=== PATIENT | female | born 1970 | race Caucasian/White ===

== ENCOUNTER → 2016-12-15 | Outpatient (CLI) | payer OTHER ==
[~2016-12-15] MED LIST: ALPR.5T PO; AMLO5TAB2 PO; CIPR500T78 PO; CLIN300C3 PO; CLON0.5T3 PO; HYDR-3714 PO; HYDR25CA PO; LISI-552 PO; LOPRESSOR; LORA-877 PO; METO25TA PO; METO50TA2 PO; OMEP20CA12 PO; ONDA4TAB8 PO; ONDA4TAB8 SL
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
== END ==
LOC: RAD 15:29
PROVIDERS: ATTEND Nurse Practitioner Family
DX: Z12.31 Encounter for screening mammogram for malignant neoplasm of breast (principal)

== ENCOUNTER → 2016-12-31 | Outpatient (CLI) | payer OTHER ==
--- OUTSIDE RECORDS SUMMARY | 2016-12-31 12:29 | XMS REPORT | Continuity of Care Document ---
Author Author [facility] Organization [facility] Address Unknown Phone Unavailable Care Team Providers Care Tie Sawyer Name Role Phone NO, LOCAL PHYSICIAN PCP Unavailable Insurance Providers Payer Name Policy Number Subscriber Name Relationship Esthela Kancare Amerigrp [id number] Shay Krishna 18 Self / Same As Patient Advance Directives Directive Response Recorded Date/Time Advance Directives No 11/29/14 11:17am Health Care Power of Professor Of Engineering No 11/21/14 9:55pm Organ Donor No 11/21/14 [...] HCl Allergy Intermediate HIVES Active 10/02/12 Penicillins ([id number]) Allergy Intermediate HIVES Active 10/02/12 Aspirin Allergy Severe MAKES HER DEATHLY ILL Active 10/02/12 naproxen ([id number]) Allergy Intermediate HIVES Active 10/02/12 Cefprozil Allergy Intermediate HIVES Active 10/02/12 Immunizations Name Given Type Date of Influenza Vaccine 07/26/14 Historical Vital Signs Acute Vital Signs Vital Response Date/Time Temperature (Fahrenheit) 98.2 degrees F (97.6 - 99.5) Temperature (Calculated Celsius) 36.52831 degrees C (36.4 - 37.5) Temperature Source Temporal Pulse Rate (adult) 69 bpm (60 - 90) Respiratory Rate 16 bpm (12 - 24) O2 Sat by Pulse Oximetry 98 % (88 - 100) Blood Pressure 137/106 mm Hg Pain Pain Intensity 0 Height (Feet) 5 feet Height (Inches) 5 inches Height (Calculated Centimeters) 165.179797 cm Weight (Pounds) 190 pounds Weight (Calculated Grams) 23692.551 gm Weight (Calculated Kilograms) 86.257585 kilograms Calculated BMI 31.61 Results Laboratory Results [...] 5-9 11/21/2014 10:50pm 11/21/2014 11:06pm Urine Specific [place] 1.005 * 1.016-1.022 11/21/2014 10:50pm 2014 11:06pm [...] Encounter Location Date/Time Departed Emergency Room Via [facility] 11/29/14 11:02am Departed Emergency Room Via [facility] 11/21/14 10:07pm Recent Diagnosis
--- NOTE | 2016-12-31 19:12 | Diagnostic Imaging Report ---
Bilateral diagnostic mammogram. INDICATION: Bilateral palpable lumps. Comparison exam from 09/05/15 reviewed. The current study was also evaluated with a Computer Aided Detection (CAD) system. FINDINGS: The breasts are composed of heterogeneously dense parenchyma which may decrease mammographic sensitivity. There is no definite mass, architectural distortion or suspicious cluster of calcification. Some nodularity to the breast parenchyma is seen similar to prior exams. IMPRESSION: Dense breasts which may decrease mammographic sensitivity. Ultrasound evaluation pending. ACR BI-RADS Category 0: Incomplete. (Needs additional imaging evaluation). Result letter will be mailed to the patient. Note: At least 10% of breast cancer is not imaged by mammography. Dictated by: Dictated on workstation # [id number]
--- NOTE | 2016-12-31 19:20 | Diagnostic Imaging Report ---
EXAMINATION: Ultrasound of bilateral breasts. INDICATION: Bilateral breast lumps and breast pain. FINDINGS: The four quadrants and retroareolar region of each breast was scanned. Particularly at the 3:00 zone in the left breast a palpable area is present with no underlying lesion seen. There are multiple scattered areas of simple appearing duct ectasia and simple cysts seen, the largest in the left side is at the 12:00 zone, measuring 1.4 x 0.8 x 0.9 cm. No solid mass in either breast is seen. IMPRESSION: No suspicious lesion identified. The palpable area at the 3:00 zone demonstrate no underlying lesion. Clinical followup is recommended. ACR BI-RADS Category 2: Benign findings. Result letter will be mailed to the patient. Note: At least 10% of breast cancer is not imaged by mammography. Dictated by: Dictated on workstation # [id number]
== END ==
LOC: RAD 12:26
PROVIDERS: ATTEND Nurse Practitioner Family
DX: N64.4 Mastodynia (principal); N63 Unspecified lump in breast
CPT/HCPCS: 77066

== ENCOUNTER 2017-01-18 13:10 | Emergency (ER) | payer OTHER ==
[~2017-01-18] VITALS: Ht 165.1 cm; Wt 88.5 kg
--- OUTSIDE RECORDS SUMMARY | 2017-01-18 13:15 | XMS REPORT | Continuity of Care Document ---
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 Name Role Phone NO, LOCAL PHYSICIAN PCP Unavailable Insurance Providers Payer Name Policy Number Subscriber Name Relationship Esthela Kancare Amerigrp [id number] Shay Krishna 18 Self / Same As Patient Advance Directives Directive Response Recorded Date/Time Advance Directives No 11/29/14 11:17am Health Care Power of Sinter Press Operator No 11/21/14 9:55pm Organ Donor No 11/21/14 [...] HCl Allergy Intermediate HIVES Active 10/02/12 Penicillins ([id number]) Allergy Intermediate HIVES Active 10/02/12 Aspirin Allergy Severe MAKES HER DEATHLY ILL Active 10/02/12 naproxen ([id number]) Allergy Intermediate HIVES Active 10/02/12 Cefprozil Allergy Intermediate HIVES Active 10/02/12 Immunizations Name Given Type Date of Influenza Vaccine 07/26/14 Historical Vital Signs Acute Vital Signs Vital Response Date/Time Temperature (Fahrenheit) 98.2 degrees F (97.6 - 99.5) Temperature (Calculated Celsius) 36.14481 degrees C (36.4 - 37.5) Temperature Source Temporal Pulse Rate (adult) 69 bpm (60 - 90) Respiratory Rate 16 bpm (12 - 24) O2 Sat by Pulse Oximetry 98 % (88 - 100) Blood Pressure 137/106 mm Hg Pain Pain Intensity 0 Height (Feet) 5 feet Height (Inches) 5 inches Height (Calculated Centimeters) 165.286361 cm Weight (Pounds) 190 pounds Weight (Calculated Grams) 64697.551 gm Weight (Calculated Kilograms) 86.637059 kilograms Calculated BMI 31.61 Results Laboratory Results [...] 5-9 11/21/2014 10:50pm 11/21/2014 11:06pm Urine Specific [place] 1.005 * 1.016-1.022 11/21/2014 10:50pm 2014 11:06pm [...] Encounter Location Date/Time Departed Emergency Room Via [facility] 11/29/14 11:02am Departed Emergency Room Via [facility] 11/21/14 10:07pm Recent Diagnosis
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
[2017-01-18] MEDS ORDERED: SILVER SULFADIAZINE 50 GM CREAM ONE (13:56)
[2017-01-18 14:03] VITALS: BP 161/100
[2017-01-19] MEDS ORDERED: SILVER SULFADIAZINE 50 GM CREAM TOP SCH (09:00)
== END 2017-01-18 14:03 | disposition home or self-care (01) ==
LOC: EDUNIT# 13:10 → ER 13:11
DX: T23.162A Burn of first degree of back of left hand, initial encounter (principal); X10.0XXA Contact with hot drinks, initial encounter; Y92.59 Other trade areas as the place of occurrence of the external cause; Y99.0 Civilian activity done for income or pay
CPT/HCPCS: 99283

== ENCOUNTER 2018-11-10 06:38 | Emergency (ER) | payer BC, OTHER ==
[~2018-11-10] VITALS: Ht 165.1 cm; Wt 90.7 kg
[~2018-11-10 06:38] MED LIST changes: +METO50TA15 PO; -METO50TA2 PO
[2018-11-10 06:59] LABS: BASOPHILS % (AUTO) 0 % (0-10); EOSINOPHILS # (AUTO) 0.3 10^3/uL (0.0-0.3); EOSINOPHILS % (AUTO) 3 % (0-10); HEMATOCRIT 39 % (35-52); LYMPHOCYTES # (AUTO) 3.7 X 10^3 (1.0-4.0); LYMPHOCYTES % (AUTO) 32 % (12-44); MEAN CORPUSCULAR HEMOGLOBIN 30 PG (25-34); MEAN CORPUSCULAR HGB CONC 34 G/DL (32-36); MEAN CORPUSCULAR VOLUME 90 FL (80-99); MEAN PLATELET VOLUME 10.5 FL (7.4-10.4); MONOCYTES # (AUTO) 0.9 X 10^3 (0.0-1.0); MONOCYTES % (AUTO) 8 % (0-12); NEUTROPHILS # (AUTO) 6.6 X 10^3 (1.8-7.8); NEUTROPHILS % (AUTO) 57 % (42-75); PLATELET COUNT 291 10^3/uL (130-400); RED BLOOD COUNT 4.29 10^6/uL (4.35-5.85); RED CELL DISTRIBUTION WIDTH 13.5 % (10.0-14.5); WHITE BLOOD COUNT 11.5 10^3/uL (4.3-11.0)
[2018-11-10] MEDS ORDERED: FAMOTIDINE 20MG/2ML IV (PEPCID) IVP ONE (07:00)
[2018-11-10] MEDS ORDERED: diphenhydrAMINE 50 MG/ML INJ (BENADRYL) IVP ONE (07:00)
[2018-11-10 07:15] LABS: ALANINE AMINOTRANSFERASE 12 U/L (0-55); ALBUMIN 3.9 GM/DL (3.2-4.5); ALKALINE PHOSPHATASE 71 U/L (40-136); BILIRUBIN,TOTAL 0.3 MG/DL (0.1-1.0); BUN/CREATININE RATIO 21; CARBON DIOXIDE 16 MMOL/L (21-32); CHLORIDE 108 MMOL/L (98-107); CREATININE SERUM 0.85 MG/DL (0.60-1.30); GFR ESTIMATED > 60; GLUCOSE 140 MG/DL (70-105); POTASSIUM 4.7 MMOL/L (3.6-5.0); SODIUM 135 MMOL/L (135-145); TOTAL PROTEIN 7.2 GM/DL (6.4-8.2)
[2018-11-10] MEDS ORDERED: ONDANSETRON 4 MG/2 ML (SDV) Z0FRAN ONE (07:26)
[2018-11-10 07:37] LABS: TSH (THYROID ANALYZER) 1.32 UIU/ML (0.35-4.94)
[2018-11-10] MEDS ORDERED: PROP40TA5 PO (08:11)
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
[2018-11-10 08:30] VITALS: BP 154/79
== END 2018-11-10 08:30 | disposition home or self-care (01) ==
LOC: EDUNIT# 06:38 → ER 06:41
DX: L29.9 Pruritus, unspecified (principal); F41.9 Anxiety disorder, unspecified; I10 Essential (primary) hypertension; F12.10 Cannabis abuse, uncomplicated; F17.210 Nicotine dependence, cigarettes, uncomplicated; G43.909 Migraine, unspecified, not intractable, without status migrainosus; E21.5 Disorder of parathyroid gland, unspecified; F43.10 Post-traumatic stress disorder, unspecified; Z98.51 Tubal ligation status; Z90.89 Acquired absence of other organs; Z88.6 Allergy status to analgesic agent; Z88.0 Allergy status to penicillin; Z88.1 Allergy status to other antibiotic agents
CPT/HCPCS: 36415; 80053; 84443; 85025; 96374; 96375

== ENCOUNTER 2018-12-04 18:27 | Emergency (ER) | payer OTHER | END 2018-12-04 20:53 | disposition home or self-care (01) | LOC: ER 18:27 ==

== ENCOUNTER 2018-12-05 21:49 | Emergency (ER) | payer OTHER | END 2018-12-05 23:09 | disposition home or self-care (01) | LOC: ER 21:49 ==

== ENCOUNTER → 2019-02-21 | Outpatient (CLI) | payer OTHER ==
[~2019-02-21] MED LIST changes: +PROP40TA5 PO
--- NOTE | 2019-02-21 11:21 | Diagnostic Imaging Report ---
PROCEDURE: US abdomen complete. TECHNIQUE: Multiple real-time grayscale images were obtained over the abdomen in various projections. INDICATION: Abdominal pain. FINDINGS: The previous hepatic ultrasound exam of 10/11/2012 noted that the gallbladder was surgically absent. There is no acute abnormality identified otherwise. On this study, the common bile duct is not abnormally dilated measuring 2.7 mm. There is no mass or free fluid in the gallbladder fossa. The liver is not enlarged, and there is no focal mass involving the liver. The biliary tree is not abnormally distended. The pancreas was obscured by bowel gas. The proximal aorta and inferior vena cava, the kidneys, and the spleen are generally unremarkable. There is no mass or free fluid collection evident. IMPRESSION: 1. There is no acute abnormality of the abdomen. 2. The gallbladder is surgically absent. 3. If clinical concern regarding an underlying abnormality persists, then CT would be recommended for further study. Dictated by: Dictated on workstation # [id number]
--- NOTE | 2019-02-21 11:31 | Diagnostic Imaging Report ---
EXAMINATION: Pelvic ultrasound. INDICATION: Pelvic pain. COMPARISON: There are no prior studies available for comparison. FINDINGS: The uterus is not enlarged measuring 10.3 x 5.9 x 5.1 cm. There is no focal mass involving the uterus to suggest a fibroid. The endometrial lining is thickened measuring 13 mm (normal 5 mm or less). This finding is nonspecific. Correlation with the patient's menstrual cycle would be recommended. Both ovaries were identified. There is good blood flow to each ovary and there is no sign of torsion. There are subcentimeter follicles associated with each ovary. There is no solid pelvic mass or free fluid collection evident. Incidental note is made of a 1 cm nabothian cyst. IMPRESSION: There is no evidence for an acute pelvic abnormality. Dictated by: Dictated on workstation # [id number]
== END ==
LOC: RAD 08:15
PROVIDERS: ATTEND Family Medicine
DX: R10.2 Pelvic and perineal pain (principal); R10.10 Upper abdominal pain, unspecified; M25.551 Pain in right hip; Z90.49 Acquired absence of other specified parts of digestive tract
CPT/HCPCS: 76700; 76830; 76856

== ENCOUNTER 2019-03-18 07:23 | Emergency (ER) | payer OTHER ==
[~2019-03-18] VITALS: Ht 170.2 cm; Wt 90.7 kg
[2019-03-18] MEDS ORDERED: ONDANSETRON 4 MG/2 ML (SDV) Z0FRAN ONE (07:36)
[2019-03-18] MEDS ORDERED: LORazepam INJ 2 MG/ML (ATIVAN) VIAL ONE (07:36)
[2019-03-18] MEDS ORDERED: ONDANSETRON 4 MG/2 ML (SDV) Z0FRAN IVP ONE (07:45)
[2019-03-18] MEDS ORDERED: LORazepam INJ 2 MG/ML (ATIVAN) VIAL IVP ONE (07:45)
[2019-03-18 07:46] LABS: BASOPHILS # (AUTO) 0.1 10^3/uL (0.0-0.1); BASOPHILS % (AUTO) 0 % (0-10); EOSINOPHILS # (AUTO) 0.3 10^3/uL (0.0-0.3); EOSINOPHILS % (AUTO) 3 % (0-10); HEMATOCRIT 42 % (35-52); HEMOGLOBIN 14.3 G/DL (11.5-16.0); LYMPHOCYTES # (AUTO) 4.1 X 10^3 (1.0-4.0); LYMPHOCYTES % (AUTO) 35 % (12-44); MEAN CORPUSCULAR HEMOGLOBIN 30 PG (25-34); MEAN CORPUSCULAR HGB CONC 34 G/DL (32-36); MEAN CORPUSCULAR VOLUME 89 FL (80-99); MONOCYTES # (AUTO) 0.9 X 10^3 (0.0-1.0); MONOCYTES % (AUTO) 7 % (0-12); NEUTROPHILS # (AUTO) 6.4 X 10^3 (1.8-7.8); NEUTROPHILS % (AUTO) 55 % (42-75); PLATELET COUNT 345 10^3/uL (130-400); RED CELL DISTRIBUTION WIDTH 13.2 % (10.0-14.5); WHITE BLOOD COUNT 11.7 10^3/uL (4.3-11.0)
--- NOTE | 2019-03-18 07:56 | ED Chest Pain ---
General Chief Complaint: Chest Pain Stated Complaint: CHEST PAIN;HIGH BP Nursing Triage Note: ARRIVED VIA AMB TO ROOM 05. ANXIOUS, CRYING, TALKING ABOUT THE RECENT OF HER PARENTS. COMPLAINS OF CHEST PAIN STARTING LAST NIGHT. WAS AT WORK TODAY AND IT BECAME WORSE. Nursing Sepsis Screen: No Definite Risk Source: patient, old records Exam Limitations: no limitations History of Present Illness Date Seen by Provider: March 18, 2019 Time Seen by Provider: 07:20 Initial Comments This 48-year-old woman presents to the emergency room with left upper chest pain that started last night and intensified this morning. She does not identify any exacerbating or alleviating factors. She is extremely anxious and is perseverating about the recent deaths of her mother and father. She says "I don't want to " multiple times. She is sobbing throughout the initial interview. She states "I think I'm going to pass out". She seems to be hyperventilating. She is rather hypertensive. She denies any history of cardiovascular problems and has had no prior cardiovascular workup. She smokes but denies drug or alcohol use. Aspirin was not administered as patient has anaphylaxis to aspirin. Patient reports frequent vomiting. Allergies and Home Medications Allergies Coded Allergies: aspirin (Verified Allergy, Severe, MAKES HER DEATHLY ILL, 10/02/12) Cefprozil (Verified Allergy, Intermediate, HIVES, 10/02/12) Penicillins (Verified Allergy, Intermediate, HIVES, 10/02/12) bupropion HCl (Verified Allergy, Intermediate, HIVES, 10/02/12) naproxen (Verified Allergy, Intermediate, HIVES, 10/02/12) Home Medications Lisinopril 20 Mg Tablet, 20 MG PO HS, (Reported) Lorazepam 0.5 Mg Tablet, 0.5 MG PO BID PRN for ANXIETY Prescribed by: MARIANNE OH on 03/18/19907 Metoprolol Tartrate 50 Mg Tablet, 100 MG PO DAILY, (Reported) Omeprazole 20 Mg Tablet.dr, 20 MG PO DAILY Prescribed by: MARIANNE OH on 03/18/19907 Ondansetron 4 Mg Tab.rapdis, 4 MG PO Q4H PRN for NAUSEA/VOMITING-1ST LINE Prescribed by: MARIANNE OH on 03/18/19907 Propranolol HCl 40 Mg Tablet, 40 MG PO BID Prescribed by: MARIANNE OH on 11/10/18 0811 Patient Home Medication List Home Medication List Reviewed: Yes Review of Systems Review of Systems Constitutional: no symptoms reported EENTM: No Symptoms Reported Respiratory: No Symptoms Reported Cardiovascular: See HPI Gastrointestinal: See HPI Genitourinary: No Symptoms Reported Musculoskeletal: no symptoms reported Skin: no symptoms reported Psychiatric/Neurological: No Symptoms Reported Endocrine: No Symptoms Reported Hematologic/Lymphatic: No Symptoms Reported Past Khabgms-Dlablc-Qtpqhv Hx Patient Social History Alcohol Use: Denies Use Recreational Drug Use: No Drug of Choice: Marijuana Smoking Status: Never a Smoker Type Used: Cigarettes 2nd Hand Smoke Exposure: Yes Recent Foreign Travel: No Contact w/Someone Who Travel: No Recent Infectious Disease Expo: No Recent Hopitalizations: No Immunizations Up To Date Date of Influenza Vaccine: Jul 26, 2014 Seasonal Allergies Seasonal Allergies: No Past Medical History Surgeries: Yes (parathyroid removed/biopsy) Adenoidectomy, Gallbladder, Tonsillectomy, Tubal Ligation Respiratory: No Cardiac: Yes Hypertension Neurological: Yes (headaches- due to head injury in november 2014) Headaches /Migraines, Traumatic Brain Injury 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 oz. 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 Norm as Tested, Other (very anxious and tearful) Skin: Normal Color, Warm/Dry Procedures/Interventions Psych Intervention: Screening/Mental Health Progress/Results/Core Measures Results/Orders Lab Results Laboratory Tests Test 03/18/19 07:28 03/18/19 08:05 03/18/19 09:30 Range/Units White Blood Count 11.7 H 4.3-11.0 10^3/uL Red Blood Count 4.79 4.35-5.85 10^6/uL Hemoglobin 14.3 11.5-16.0 G/DL Hematocrit 42 35-52 % Mean Corpuscular Volume 89 80-99 FL Mean Corpuscular Hemoglobin 30 25-34 PG Mean Corpuscular Hemoglobin Concent 34 32-36 G/DL Red Cell Distribution Width 13.2 10.0-14.5 % Platelet Count 345 130-400 10^3/uL Mean Platelet Volume 10.0 7.4-10.4 FL Neutrophils (%) (Auto) 55 42-75 % Lymphocytes (%) (Auto) 35 12-44 % Monocytes (%) (Auto) 7 0-12 % Eosinophils (%) (Auto) 3 0-10 % Basophils (%) (Auto) 0 0-10 % Neutrophils # (Auto) 6.4 1.8-7.8 X 10^3 Lymphocytes # (Auto) 4.1 H 1.0-4.0 X 10^3 Monocytes # (Auto) 0.9 0.0-1.0 X 10^3 Eosinophils # (Auto) 0.3 0.0-0.3 10^3/uL Basophils # (Auto) 0.1 0.0-0.1 10^3/uL Prothrombin Time 14.0 12.2-14.7 SEC INR Comment 1.0 0.8-1.4 Activated Partial Thromboplast Time 40 H 24-35 SEC Sodium Level 137 135-145 MMOL/L Potassium Level 3.9 3.6-5.0 MMOL/L Chloride Level 104 98-107 MMOL/L Carbon Dioxide Level 21 21-32 MMOL/L Anion Gap 12 5-14 MMOL/L Blood Urea Nitrogen 14 7-18 MG/DL Creatinine 1.00 0.60-1.30 MG/DL Estimat Glomerular Filtration Rate 59 BUN/Creatinine Ratio 14 Glucose Level 138 H 70-105 MG/DL Calcium Level 9.5 8.5-10.1 MG/DL Corrected Calcium 9.3 8.5-10.1 MG/DL Magnesium Level 1.9 1.8-2.4 MG/DL Total Bilirubin 0.4 0.1-1.0 MG/DL Aspartate Amino Transf (AST/SGOT) 12 5-34 U/L Alanine Aminotransferase (ALT/SGPT) 13 0-55 U/L Alkaline Phosphatase 93 40-136 U/L Myoglobin 46.0 10.0-92.0 NG/ML Troponin I < 0.028 < 0.028 <0.028 NG/ML Total Protein 7.9 6.4-8.2 GM/DL Albumin 4.3 3.2-4.5 GM/DL Serum Alcohol < 10 <10 MG/DL Urine Opiates Screen NEGATIVE NEGATIVE Urine Oxycodone Screen NEGATIVE NEGATIVE Urine Methadone Screen NEGATIVE NEGATIVE Urine Propoxyphene Screen NEGATIVE NEGATIVE Urine Barbiturates Screen NEGATIVE NEGATIVE Ur Tricyclic Antidepressants Screen NEGATIVE NEGATIVE Urine Phencyclidine Screen NEGATIVE NEGATIVE Urine Amphetamines Screen NEGATIVE NEGATIVE Urine Methamphetamines Screen NEGATIVE NEGATIVE Urine Benzodiazepines Screen NEGATIVE NEGATIVE Urine Cocaine Screen NEGATIVE NEGATIVE Urine Cannabinoids Screen NEGATIVE NEGATIVE My Orders Orders - MARIANNE MANJARREZ MD Ondansetron Injection (Zofran Injectio (03/18/19 07:36) Lorazepam Injection (Ativan Injection) (03/18/19 07:36) Alcohol (03/18/19 07:40) Drug Screen Stat (Urine) (03/18/19 07:40) Lorazepam Injection (Ativan Injection) (03/18/19 07:45) Cbc With Automated Diff (03/18/19 07:40) Magnesium (03/18/19 07:40) Chest 1 View, Ap/Pa Only (03/18/19 07:40) Ekg Tracing (03/18/19 07:40) Cardiac Profile 1 (03/18/19 07:40) Comprehensive Metabolic Panel (03/18/19 07:40) Myoglobin Serum (03/18/19 07:40) Protime With Inr (03/18/19 07:40) Partial Thromboplastin Time (03/18/19 07:40) O2 (03/18/19 07:40) Monitor-Rhythm Ecg Trace Only (03/18/19 07:40) Ed Iv/Invasive Line Start (03/18/19 07:40) Ondansetron Injection (Zofran Injectio (03/18/19 07:45) Ekg Tracing (03/18/19 09:02) Troponin I (03/18/19 09:30) Medications Given in ED Current Medications Medications Dose Ordered Sig/Juan David Route Start Time Stop Time Status Last Admin Dose Admin Lorazepam 0.5 mg ONCE ONCE IVP 03/18/19 07:45 03/18/19 07:46 DC 03/18/19 07:42 0.5 MG Ondansetron HCl 8 mg ONCE ONCE IVP 03/18/19 07:45 03/18/19 07:46 DC 03/18/19 07:42 8 MG Vital Signs/I&O 03/18/19 07:23 Temp 97.2 Pulse 100 Resp 18 B/P (MAP) 175/127 (143) Pulse Ox 96 O2 Delivery Room Air Blood Pressure Mean: 143 Progress Progress Note #1: Time: 07:57 Progress Note EKG was normal. Aspirin was not given due to allergy. Patient has received Ativan 0.5 mg IV and Zofran 8 mg IV. Chest pain workup is in progress. Progress Note #2: Time: 08:03 Progress Note Patient states her pain is reduced from 8/10 down to 4/10 after Ativan and Zofran. She is still little bit tearful. Blood pressure has improved to 130/ 97. She states "I feel like my heart is broken". Progress Note #3: Time: 09:03 Progress Note Patient reports being free of pain and nausea at this time. Patient is going through a lot of grief and stress related to her parents deaths. She also tells me that she has been bulimic since age 12. Vomiting is a frequent occurrence for her, sometimes spontaneously and sometimes induced. Progress Note #4: Time: 10:18 Progress Note Repeat EKG and troponin were unremarkable. Initial ECG Impression Date: March 18, 2019 Initial ECG Impression Time: 07:22 Initial ECG Rate: 97 Initial ECG Rhythm: Normal Sinus Initial ECG Intervals: Normal Initial ECG Impression: Normal Comment Normal sinus rhythm with no ST elevation or depression. No abnormal intervals or axis deviation. EKG : EKG Time: : Rate: 54 Rhythm: Normal Sinus Intervals: Normal ECG Impression: Normal Comment Normal sinus rhythm with no ST elevation or depression. LVH by voltage on automated read. No abnormal intervals. Diagnostic Imaging Diagonstic Imaging: Xray Plain Films/CT/US/NM/MRI: chest Comments Chest x-ray viewed by me and report reviewed. See report below: NAME: [facility] REC#: [id number] PT STATUS: REG ER : 1970 PHYSICIAN: MARIANNE MANJARREZ MD ADMIT DATE: 03/18/19/ER Draft Date of Exam:03/18/19 CHEST 1 VIEW, AP/PA ONLY INDICATION: Hypertension, chest pain COMPARISON: 06/07/2016 FINDINGS: The lungs are clear. The heart and vessels normal. There is no effusion or pneumothorax. IMPRESSION: No acute appearing abnormality. Dictated on workstation # [id number] Dict: 03/18/19 0815 Trans: 03/18/19 0833 [facility] [id number] Interpreted by: SE HUTCHISON Departure Impression Primary Impression: Chest pain Qualified Codes: R07.9 - Chest pain, unspecified Additional Impressions: Anxiety Grief reaction Nausea and vomiting Qualified Codes: R11.2 - Nausea with vomiting, unspecified Self induced vomiting Disposition: 01 HOME, SELF-CARE Condition: Improved Departure-Patient Inst. Referrals: NO,LOCAL PHYSICIAN (PCP/Family) Primary Care Physician Patient Instructions: Anxiety, Adult (DC), Chest Pain Add. Discharge Instructions: Follow-up with your primary care provider soon as possible. Discussed referrals to counseling and cardiology at your follow-up appointment. Return to the emergency room if you have worsening symptoms. Use your Ativan as prescribed for emergency episodes of anxiety. Use Zofran (ondansetron) as prescribed for nausea and vomiting. Use the antacid medication (omeprazole) as prescribed for the next 30 days to reduce irritation on your stomach and esophagus. All discharge instructions reviewed with patient and/or family. Voiced understanding. Scripts Lorazepam (Ativan) 0.5 Mg Tablet 0.5 MG PO BID PRN for ANXIETY, #10 TAB Prov: MARIANNE MANJARREZ MD 03/18/19 Ondansetron (Ondansetron Odt) 4 Mg Tab.rapdis 4 MG PO Q4H PRN for NAUSEA/VOMITING-1ST LINE, #10 TAB Prov: MARIANNE MANJARREZ MD 03/18/19 Omeprazole (Omeprazole) 20 Mg Tablet.dr 20 MG PO DAILY, #30 TAB Prov: MARIANNE MANJARREZ MD 03/18/19 Work/School Note: Work Release Form Date Seen in the Emergency Department: March 18, 2019 Return to Work: March 20, 2019 Restrictions: No Restrictions Copy Copies To 1: KALIE LOPEZ MD, JOSHUA T MD March 18, 2019 07:56
[2019-03-18 07:58] LABS: ALANINE AMINOTRANSFERASE 13 U/L (0-55); ALBUMIN 4.3 GM/DL (3.2-4.5); ALKALINE PHOSPHATASE 93 U/L (40-136); BILIRUBIN,TOTAL 0.4 MG/DL (0.1-1.0); BUN/CREATININE RATIO 14; CALCIUM 9.5 MG/DL (8.5-10.1); CARBON DIOXIDE 21 MMOL/L (21-32); CHLORIDE 104 MMOL/L (98-107); GFR ESTIMATED 59; GLUCOSE 138 MG/DL (70-105); MAGNESIUM 1.9 MG/DL (1.8-2.4); POTASSIUM 3.9 MMOL/L (3.6-5.0); SODIUM 137 MMOL/L (135-145); TOTAL PROTEIN 7.9 GM/DL (6.4-8.2)
--- NOTE | 2019-03-18 08:00 | NUR ---
IN ROOM AT THIS TIME.
[2019-03-18 08:31] LABS: AMPHETAMINE SCREEN, URINE NEGATIVE (NEGATIVE); BARBITURATE SCREEN URINE NEGATIVE (NEGATIVE); BENZODIAZEPINES SCREEN URINE NEGATIVE (NEGATIVE); CANNABINOID SCREEN, URINE NEGATIVE (NEGATIVE); COCAINE SCREEN URINE NEGATIVE (NEGATIVE); METHADONE STAT NEGATIVE (NEGATIVE); METHAMPHETAMINE SCREEN URINE S NEGATIVE (NEGATIVE); OPIATE SCREEN URINE NEGATIVE (NEGATIVE); OXYCODONE STAT NEGATIVE (NEGATIVE); PROPOXYPHENE STAT NEGATIVE (NEGATIVE); TRICYCLIC ANTIDEPRESSANTS SCRE NEGATIVE (NEGATIVE)
--- NOTE | 2019-03-18 08:33 | Diagnostic Imaging Report ---
INDICATION: Hypertension, chest pain COMPARISON: 06/07/2016 FINDINGS: The lungs are clear. The heart and vessels normal. There is no effusion or pneumothorax. IMPRESSION: No acute appearing abnormality. Dictated by: Dictated on workstation # [id number]
--- NOTE | 2019-03-18 08:41 | NUR ---
UP AMBULATING TO BATHROOM.
--- NOTE | 2019-03-18 09:00 | NUR ---
IN ROOM TALKING TO THE PT AT THIS TIME.
[2019-03-18] MEDS ORDERED: OMEP20TA7 PO (09:08)
[2019-03-18] MEDS ORDERED: ONDA4TAB11 PO (09:08)
[2019-03-18] MEDS ORDERED: LORA-404 PO (09:08)
[2019-03-18 10:17] VITALS: BP 114/88
== END 2019-03-18 10:17 | disposition home or self-care (01) ==
LOC: EDUNIT# 07:23 → ER 07:23
DX: R07.9 Chest pain, unspecified (principal); F41.9 Anxiety disorder, unspecified; F43.20 Adjustment disorder, unspecified; R11.2 Nausea with vomiting, unspecified; I10 Essential (primary) hypertension; G43.909 Migraine, unspecified, not intractable, without status migrainosus; F50.2 Bulimia nervosa; F43.10 Post-traumatic stress disorder, unspecified; Z87.820 Personal history of traumatic brain injury; Z88.6 Allergy status to analgesic agent; Z88.0 Allergy status to penicillin; Z88.8 Allergy status to other drugs, medicaments and biological substances; Z77.22 Contact with and (suspected) exposure to environmental tobacco smoke (acute) (chronic); Z98.51 Tubal ligation status; Z90.89 Acquired absence of other organs; Z98.890 Other specified postprocedural states
CPT/HCPCS: 36415; 71045; 80053; 80306; 80320; 83735; 83874; 84484; 85025; 85610; 85730; 93005; 93041

== ENCOUNTER 2019-07-03 21:54 | Emergency (ER) | payer OTHER ==
[~2019-07-03] VITALS: Ht 165.1 cm; Wt 90.7 kg
[~2019-07-03 21:54] MED LIST changes: +LORA-404 PO; -OMEP20CA12 PO; +OMEP20CA13 PO; +OMEP20TA7 PO; +ONDA4TAB11 PO
[2019-07-03] MEDS ORDERED: FAMO-119 PO (22:08)
[2019-07-03] MEDS ORDERED: PRD20T PO (22:08)
--- NOTE | 2019-07-03 22:08 | ED Integumentary General ---
General Chief Complaint: Allergic Reaction Stated Complaint: HIVES Source: patient Exam Limitations: no limitations History of Present Illness Date Seen by Provider: Jul 03, 2019 Time Seen by Provider: 22:05 Initial Comments To ER with hives that began 4 days ago. She is currently on clindamycin for an abscessed tooth on the right mandible. No fevers or chills. She's been taking Benadryl one tablet every 6 hours. Long history of hives dating back to when she was a child. Unclear whether she is allergic to the clindamycin or hives are from other etiology. Timing/Duration: week, getting worse Severity: moderate Associated Symptoms: denies symptoms Allergies and Home Medications Allergies Coded Allergies: aspirin (Verified Allergy, Severe, MAKES HER DEATHLY ILL, 10/02/12) Cefprozil (Verified Allergy, Intermediate, HIVES, 10/02/12) Penicillins (Verified Allergy, Intermediate, HIVES, 10/02/12) bupropion HCl (Verified Allergy, Intermediate, HIVES, 10/02/12) naproxen (Verified Allergy, Intermediate, HIVES, 10/02/12) Home Medications Famotidine 20 Mg Tablet, 20 MG PO BID Prescribed by: ARON DOYLE on 07/03/192207 Lisinopril 20 Mg Tablet, 20 MG PO HS, (Reported) Lorazepam 0.5 Mg Tablet, 0.5 MG PO BID PRN for ANXIETY Prescribed by: MARIANNE OH on 03/18/19907 Metoprolol Tartrate 50 Mg Tablet, 100 MG PO DAILY, (Reported) Omeprazole 20 Mg Tablet.dr, 20 MG PO DAILY Prescribed by: MARIANNE OH on 03/18/19907 Ondansetron 4 Mg Tab.rapdis, 4 MG PO Q4H PRN for NAUSEA/VOMITING-1ST LINE Prescribed by: MARIANNE OH on 03/18/19907 Prednisone 20 Mg Tab, 40 MG PO DAILY Prescribed by: ARON DOYLE on 07/03/192207 Propranolol HCl 40 Mg Tablet, 40 MG PO BID Prescribed by: MARIANNE OH on 11/10/18 0811 Patient Home Medication List Home Medication List Reviewed: Yes Review of Systems Review of Systems Constitutional: see HPI EENTM: see HPI Respiratory: no symptoms reported, see HPI Cardiovascular: no symptoms reported Genitourinary: no symptoms reported Musculoskeletal: no symptoms reported Skin: no symptoms reported Psychiatric/Neurological: No Symptoms Reported Endocrine: No Symptoms Reported Past Pppwsgr-Jhppwk-Kzhagx Hx Patient Social History Drug of Choice: Marijuana Type Used: Cigarettes 2nd Hand Smoke Exposure: Yes Recent Hopitalizations: No Immunizations Up To Date Date of Influenza Vaccine: Jul 26, 2014 Seasonal Allergies Seasonal Allergies: No Past Medical History Surgeries: Yes (parathyroid removed/biopsy) Adenoidectomy, Gallbladder, Tonsillectomy, Tubal Ligation Respiratory: No Cardiac: Yes Hypertension Neurological: Yes (headaches- due to head injury in november 2014) Headaches /Migraines, Traumatic Brain Injury Reproductive Disorders: No (Tubes are tied) [employer]PER[employer] History: Tubal Ligation Genitourinary: No Gastrointestinal: Yes (POSS "SPOT ON LIVER") Musculoskeletal: No Endocrine: Yes Parathyroid Disease HEENT: No Cancer: No Psychosocial: Yes (BULEMIA) Eating Disorder, Anxiety, PTSD Integumentary: No Blood Disorders: No Family Medical History Diabetes, Hypertension, Stroke Physical Exam Vital Signs Capillary Refill : General Appearance: WD/WN, no apparent distress, other (tearful, talking about her mother who has . States that she has lorazepam at home but she hasn't taken it because she doesn't like taking pills. She also has metoprolol but she hasn't taken that in 2 days because she didn't want to mix it with the Benadryl.) HEENT: PERRL/EOMI, normal ENT inspection Neck: non-tender, full range of motion Cardiovascular: tachycardia Respiratory: normal breath sounds, no respiratory distress, no accessory muscle use; No stridor, No wheezing Gastrointestinal: normal bowel sounds, non tender, soft Extremities: normal range of motion, non-tender Neurologic/Psychiatric: alert, normal mood/affect, oriented x 3 Skin: normal color, warm/dry Skin Problem Character: other (few patches of hives, one to the mid back, one the left thigh, one to the right anterior knee. Nothing to the face. No airway involvement.) Procedures/Interventions Psych Intervention: Screening/Mental Health Progress/Results/Core Measures Results/Orders My Orders Orders - ARON DOYLE APRN Diphenhydramine Injection (Benadryl Inje (07/03/19 22:15) Famotidine Tablet (Pepcid Tablet) (07/03/19 22:15) Prednisone Tablet (Deltasone Tablet) (07/03/19 22:15) Departure Impression Primary Impression: Hives Additional Impressions: Anxiety Odontogenic infection of jaw Disposition: HOME, SELF-CARE Condition: Stable Departure-Patient Inst. Decision time for Depature: 22:07 Referrals: NO,LOCAL PHYSICIAN (PCP/Family) Primary Care Physician Patient Instructions: Mir (DC) Add. Discharge Instructions: 1. Follow-up with your dentist tomorrow 2. Return to ER for any concerns All discharge instructions reviewed with patient and/or family. Voiced unders tanding. Scripts Famotidine (Pepcid) 20 Mg Tablet 20 MG PO BID, #14 TAB Prov: ARON DOYLE APRN 07/03/19 Prednisone (Prednisone) 20 Mg Tab 40 MG PO DAILY, #6 TAB 0 Refills Prov: ARON DOYLE APRN 07/03/19 ARON DOYLE APRN Jul 03, 2019 22:08
[2019-07-03] MEDS ORDERED: FAMOTIDINE 20 MG (PEPCID) TABLET PO ONE (22:15)
[2019-07-03] MEDS ORDERED: diphenhydrAMINE 50 MG/ML INJ (BENADRYL) IM ONE (22:15)
[2019-07-03] MEDS ORDERED: predniSONE 20 MG TAB PO ONE (22:15)
[2019-07-03 22:39] VITALS: BP 156/136
== END 2019-07-03 22:40 | disposition home or self-care (01) ==
LOC: EDUNIT# 21:54 → ER 21:55
DX: L50.9 Urticaria, unspecified (principal); F41.9 Anxiety disorder, unspecified; F43.10 Post-traumatic stress disorder, unspecified; K04.7 Periapical abscess without sinus; I10 Essential (primary) hypertension; G43.909 Migraine, unspecified, not intractable, without status migrainosus; E21.5 Disorder of parathyroid gland, unspecified; Z87.820 Personal history of traumatic brain injury; Z88.6 Allergy status to analgesic agent; Z88.1 Allergy status to other antibiotic agents; Z88.0 Allergy status to penicillin; Z88.8 Allergy status to other drugs, medicaments and biological substances; Z87.891 Personal history of nicotine dependence; Z90.89 Acquired absence of other organs; Z98.51 Tubal ligation status; Z82.49 Family history of ischemic heart disease and other diseases of the circulatory system
CPT/HCPCS: 99284

== ENCOUNTER → 2019-08-31 | Outpatient (CLI) | payer OTHER ==
[~2019-08-31] MED LIST changes: +FAMO-119 PO; +PRD20T PO
--- NOTE | 2019-08-31 14:44 | Diagnostic Imaging Report ---
INDICATION: Palpable lump in left breast. Correlation is made with prior mammograms from 12/31/2016 and 08/23/2015. 2-D and 3-D bilateral diagnostic mammography was performed. Both breasts are heterogeneously dense, limiting the sensitivity of mammography. There is a rounded circumscribed mass in the posterior left breast slightly lateral approximately 6 cm from the nipple. This may represent a cyst. There is a rounded density in the upper retroareolar left breast as well approximately 2 cm from the nipple. These areas should be evaluated with ultrasound. The right breast is unremarkable. No suspicious calcifications are seen. Axillae are unremarkable. IMPRESSION: BI-RADS 0 Left breast densities, as described. Further evaluation of these areas as well as the area of palpable abnormality in left breast is recommended and will be performed today. Dictated by: Dictated on workstation # [id number]
--- NOTE | 2019-08-31 15:34 | Diagnostic Imaging Report ---
INDICATION: Palpable lump in the left breast as well as circumscribed densities noted on diagnostic mammogram. This study is performed for further evaluation. COMPARISON: Correlation is made with the diagnostic mammogram performed earlier today. FINDINGS: Sonographic interrogation of the area of palpable abnormality in the left breast which corresponds to the 1 o'clock location does confirm a slightly lobulated cyst 1 cm from the nipple measuring 1.8 x 1.1 x 1.7 cm. This also likely accounts for the circumscribed density noted in the retroareolar and slightly upper left breast on mammogram. The 3 o'clock location was also evaluated and there are numerous cysts present. The largest is approximately 3 cm from the nipple measuring 11 mm x 15 mm. This likely accounts for the rounded density noted on mammogram. No solid mass is detected. IMPRESSION: Numerous left breast cysts account for the mammographic and palpable abnormalities. No concerning lesion is seen. The patient may return to routine annual screening mammography. ACR BI-RADS Category 2: Benign findings. Dictated by: Dictated on workstation # [id number]
== END ==
LOC: RAD 14:07
PROVIDERS: ATTEND Pediatrics
DX: N63.20 Unspecified lump in the left breast, unspecified quadrant (principal); N60.02 Solitary cyst of left breast
CPT/HCPCS: 76642; 77066

== ENCOUNTER → 2019-09-07 | Outpatient (CLI) | payer OTHER | END | disposition home or self-care (01) | LOC: PREOP 09:22 | PROVIDERS: ATTEND Pediatrics | DX: Z01.818 Encounter for other preprocedural examination (principal) ==

== ENCOUNTER 2019-09-08 06:48 | Day surgery (SDC) | payer OTHER ==
[~2019-09-08] VITALS: Ht 165.1 cm; Wt 93.8 kg
[2019-09-08] VITALS (11 sets, daily range): BP systolic 89–132; BP diastolic 54–97
[2019-09-08] MEDS ORDERED: NS IV 500 ML 500 ML IV PRN (07:01)
[2019-09-08] MEDS ORDERED: NS IV 500 ML 500 ML ONE (07:13)
[2019-09-08] MEDS ORDERED: fentaNYL INJECTION 100 MCG/2 ML AMP IVP ONE (07:15)
[2019-09-08] MEDS ORDERED: MIDAZOLAM 5 MG/5 ML (VERSED) VIAL ONE ×2 (07:54→08:08)
[2019-09-08] MEDS ORDERED: fentaNYL INJECTION 100 MCG/2 ML AMP ONE ×2 (07:54→08:08)
[2019-09-08] MEDS: MIDAZOLAM 5 MG/5 ML (VERSED) VIAL IV PRN ×5 (08:00→08:12)
--- NOTE | 2019-09-08 08:03 | Progress Note-Pre Operative ---
Pre-Operative Progress Note H&P Reviewed The H&P was reviewed, patient examined and no changes noted. Date Seen by Provider: Sep 08, 2019 Time Seen by Provider: 08:03 Date H&P Reviewed: Sep 08, 2019 Time H&P Reviewed: 08:03 Pre-Operative Diagnosis: as per note NALLELY ALMANZA MD Sep 08, 2019 08:03
[2019-09-08] MEDS ORDERED: ONDANSETRON 4 MG/2 ML (SDV) Z0FRAN ONE (08:04)
--- NOTE | 2019-09-08 08:25 | Endoscopy Procedure Report ---
Colonoscopy Procedure Performed: Colonoscopy Pre-Operative Diagnosis: screening Post-Operative Diagnosis: same Countersinker: None. Indications for Procedure: screen Procedure Details: Informed consent was obtained, the risks, benefits and alternatives to the procedure were explained to the patient. The Shay Krishna, a 49 yr old female, was brought to to surgery area, sedated with 7 mg of Versed and 150 ug of fentanyl. She was placed in the left lateral decubitus position. Under direct visualization the scope was passed easily to the cecum. Cecum is identified by landmarks. Scope was carefully withdrawn. Findings: Ascending Colon: none Transverse Colon: none Descending/Sigmoid: none Rectum: none Estimated Blood Loss: 0 mL Specimens: none Complications: None; patient tolerated the procedure well. Final Diagnosis: unremarkalbe colonoscopy to level of cecum NALLELY ALMANZA MD Sep 08, 2019 08:24
[2019-09-08] MEDS ORDERED: ONDANSETRON 4 MG/2 ML (SDV) Z0FRAN IVP ONE (08:30)
== END 2019-09-08 09:00 | disposition home or self-care (01) ==
LOC: ENDO 06:48
PROVIDERS: ATTEND Pediatrics
DX: Z12.11 Encounter for screening for malignant neoplasm of colon (principal); Z88.0 Allergy status to penicillin; Z88.6 Allergy status to analgesic agent; Z88.8 Allergy status to other drugs, medicaments and biological substances
CPT/HCPCS: 84703

== ENCOUNTER 2020-01-15 17:18 | Emergency (ER) | payer OTHER ==
[~2020-01-15] VITALS: Ht 165.1 cm; Wt 94.8 kg
[~2020-01-15 17:18] MED LIST changes: -OMEP20CA13 PO; +OMEP20CA18 PO
[2020-01-15] MEDS ORDERED: LORazepam INJ 2 MG/ML (ATIVAN) VIAL IVP STA (17:42)
[2020-01-15 17:46] LABS: BASOPHILS % (AUTO) 0 % (0-10); EOSINOPHILS # (AUTO) 0.3 10^3/uL (0.0-0.3); EOSINOPHILS % (AUTO) 2 % (0-10); HEMATOCRIT 39 % (35-52); HEMOGLOBIN 13.1 G/DL (11.5-16.0); LYMPHOCYTES # (AUTO) 4.2 X 10^3 (1.0-4.0); LYMPHOCYTES % (AUTO) 34 % (12-44); MEAN CORPUSCULAR HEMOGLOBIN 30 PG (25-34); MEAN CORPUSCULAR HGB CONC 33 G/DL (32-36); MEAN CORPUSCULAR VOLUME 89 FL (80-99); MEAN PLATELET VOLUME 10.1 FL (7.4-10.4); MONOCYTES % (AUTO) 8 % (0-12); NEUTROPHILS % (AUTO) 56 % (42-75); PLATELET COUNT 316 10^3/uL (130-400); RED CELL DISTRIBUTION WIDTH 13.5 % (10.0-14.5); WHITE BLOOD COUNT 12.5 10^3/uL (4.3-11.0)
[2020-01-15 17:53] LABS: PROTHROMBIN TIME PATIENT 13.5 SEC (12.2-14.7)
--- NOTE | 2020-01-15 17:56 | ED General ---
General Chief Complaint: Dizziness/Syncope Stated Complaint: HIGH BLOOD PRESSURE,FEELS LIKE PASSING OUT Nursing Triage Note: PT AMBULATE TO ROOM 05 WITH C/O DIZZYNESS, HYPERTENSION, TINGLING, HEADACHES X2 WEEKS. PT STATES SHE IS IN BETWEEN DOCTORS AND THAT HAS APPT WITH NEW PCP ON THURSDAY. Nursing Sepsis Screen: No Definite Risk History of Present Illness Date Seen by Provider: Jan 15, 2020 Time Seen by Provider: 17:25 Initial Comments 49-year-old female presents for anxiety, 2 weeks of intermittent feelings of warmth in left neck and arm. No chest pain or pressure, no N/V/D. She is tearful. She lost her parents in the spring, within a few weeks of each other, they were in their mid 60s. She takes Ativan 0.5mg, rarely for anxiety. She took 1 at 10:00 am today. Her only other medication is metoprolol 50 mg BID. She works at [employer] and hasn't been able to take time off. Doesn't feel supported by her family. Timing/Duration: Intermittent Associated Systoms: No Chest Pain, No Cough, No Fever/Chills, No Headaches; Loss of Appetite, Malaise; No Nausea/Vomiting, No Shortness of Air, No Syncope, No Weakness Allergies and Home Medications Allergies Coded Allergies: aspirin (Verified Allergy, Severe, MAKES HER DEATHLY ILL, 10/02/12) Penicillins (Verified Allergy, Intermediate, HIVES, 10/02/12) bupropion HCl (Verified Allergy, Intermediate, HIVES, 10/02/12) cefprozil (Verified Allergy, Intermediate, HIVES, 10/02/12) naproxen (Verified Allergy, Intermediate, HIVES, 10/02/12) Home Medications Lorazepam 0.5 Mg Tablet, 0.5 MG PO BID PRN for ANXIETY Prescribed by: MARIANNE OH on 03/18/19 0908 Lorazepam 0.5 Mg Tablet, 0.5 MG PO TID PRN for ANXIETY Prescribed by: DOTTIE DONALDSON on 01/15/201851 Metoprolol Tartrate 50 Mg Tablet, 100 MG PO DAILY, (Reported) Paroxetine HCl 12.5 Mg Tab.er.24h, 12.5 MG PO DAILY Prescribed by: DOTTIE DONALDSON on 01/15/201851 Patient Home Medication List Home Medication List Reviewed: Yes Review of Systems Review of Systems Constitutional: no symptoms reported, see HPI Respiratory: no symptoms reported, see HPI Cardiovascular: no symptoms reported Psychiatric/Neurological: See HPI, Anxiety All Other Systems Reviewed Negative Unless Noted: Yes Past Capejnv-Qaixiq-Phlhph Hx Past Med/Social Hx: Reviewed Nursing Past Med/Soc Hx Patient Social History Alcohol Use: Occasionally Uses Number of Drinks Today: AA Alcohol Beverage of Choice: Beer Recreational Drug Use: No Drug of Choice: Marijuana Smoking Status: Current Everyday Smoker Type Used: Cigarettes 2nd Hand Smoke Exposure: Yes Recent Foreign Travel: No Contact w/Someone Who Travel: No Recent Infectious Disease Expo: No Recent Hopitalizations: No Physical Abuse: No Sexual Abuse: No Mistreated: No Fear: No Immunizations Up To Date Tetanus Booster (TDap): Unknown Date of Influenza Vaccine: Aug 03, 2019 Seasonal Allergies Seasonal Allergies: No Past Medical History Surgeries: Yes (parathyroid removed/biopsy) Adenoidectomy, Gallbladder, Tonsillectomy, Tubal Ligation Respiratory: No Currently Using CPAP: No Currently Using BIPAP: No Cardiac: Yes Hypertension Neurological: Yes (headaches- due to head injury in november 2014) Headaches /Migraines, Traumatic Brain Injury Reproductive Disorders: No (Tubes are tied) 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 Disorders: 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 oz. 90.797736dh; 34.00 BMI Method:Stated General Appearance: WD/WN, Anxious, Mild Distress Eyes: Bilateral Eye Normal Inspection, Bilateral Eye PERRL, Bilateral Eye EOMI HEENT: PERRL/EOMI, TMs Normal, Normal ENT Inspection, Pharynx Normal Neck: Full Range of Motion, Normal Inspection, Non Tender, Supple Respiratory: Chest Non Tender, Lungs Clear, Normal Breath Sounds Cardiovascular: Regular Rate, Rhythm, No Edema, No Murmur, Normal Peripheral Pulses Gastrointestinal: Normal Bowel Sounds, Non Tender Extremity: Normal Capillary Refill, Normal Inspection, Normal Range of Motion Neurologic/Psychiatric: Alert, Oriented x3, No Motor/Sensory Deficits, Normal Mood/Affect Skin: Normal Color, Warm/Dry Procedures/Interventions Psych Intervention: Screening/Mental Health Progress/Results/Core Measures Suspected Sepsis Recent Fever Within 48 Hours: No Infection Criteria Present: None New/Unexplained Altered Menta: No Sepsis Screen: No Definite Risk SIRS Temperature: Pulse: 82 Respiratory Rate: 20 Laboratory Tests 01/15/20 17:35: White Blood Count 12.5H Blood Pressure 196 /136 Mean: 156 Laboratory Tests 01/15/20 17:35: Creatinine 0.83, INR Comment 1.0, Platelet Count 316, Total Bilirubin 0.2 Results/Orders Lab Results Laboratory Tests Test 01/15/20 17:35 01/15/20 17:38 01/15/20 18:05 Range/Units White Blood Count 12.5 H 4.3-11.0 10^3/uL Red Blood Count 4.39 4.35-5.85 10^6/uL Hemoglobin 13.1 11.5-16.0 G/DL Hematocrit 39 35-52 % Mean Corpuscular Volume 89 80-99 FL Mean Corpuscular Hemoglobin 30 25-34 PG Mean Corpuscular Hemoglobin Concent 33 32-36 G/DL Red Cell Distribution Width 13.5 10.0-14.5 % Platelet Count 316 130-400 10^3/uL Mean Platelet Volume 10.1 7.4-10.4 FL Neutrophils (%) (Auto) 56 42-75 % Lymphocytes (%) (Auto) 34 12-44 % Monocytes (%) (Auto) 8 0-12 % Eosinophils (%) (Auto) 2 0-10 % Basophils (%) (Auto) 0 0-10 % Neutrophils # (Auto) 7.0 1.8-7.8 X 10^3 Lymphocytes # (Auto) 4.2 H 1.0-4.0 X 10^3 Monocytes # (Auto) 1.0 0.0-1.0 X 10^3 Eosinophils # (Auto) 0.3 0.0-0.3 10^3/uL Basophils # (Auto) 0.0 0.0-0.1 10^3/uL Prothrombin Time 13.5 12.2-14.7 SEC INR Comment 1.0 0.8-1.4 Activated Partial Thromboplast Time 35 24-35 SEC Sodium Level 139 135-145 MMOL/L Potassium Level 3.6 3.6-5.0 MMOL/L Chloride Level 108 H 98-107 MMOL/L Carbon Dioxide Level 22 21-32 MMOL/L Anion Gap 9 5-14 MMOL/L Blood Urea Nitrogen 16 7-18 MG/DL Creatinine 0.83 0.60-1.30 MG/DL Estimat Glomerular Filtration Rate > 60 BUN/Creatinine Ratio 19 Glucose Level 95 70-105 MG/DL Calcium Level 9.3 8.5-10.1 MG/DL Corrected Calcium 9.4 8.5-10.1 MG/DL Magnesium Level 1.8 1.6-2.4 MG/DL Total Bilirubin 0.2 0.1-1.0 MG/DL Aspartate Amino Transf (AST/SGOT) 11 5-34 U/L Alanine Aminotransferase (ALT/SGPT) 10 0-55 U/L Alkaline Phosphatase 74 40-136 U/L Myoglobin 23.7 10.0-92.0 NG/ML Troponin I < 0.028 <0.028 NG/ML Total Protein 7.1 6.4-8.2 GM/DL Albumin 3.9 3.2-4.5 GM/DL TSH [place] Testing 1.44 0.35-4.94 UIU/ML Glucometer 99 70-110 MG/DL Urine Color YELLOW Urine Clarity CLEAR Urine pH 6.0 5-9 Urine Specific [place] 1.020 1.016-1.022 Urine Protein NEGATIVE NEGATIVE Urine Glucose (UA) NEGATIVE NEGATIVE Urine Ketones NEGATIVE NEGATIVE Urine Nitrite NEGATIVE NEGATIVE Urine Bilirubin NEGATIVE NEGATIVE Urine Urobilinogen 0.2 < = 1.0 MG/DL Urine Leukocyte Esterase NEGATIVE NEGATIVE Urine RBC (Auto) 1+ H NEGATIVE Urine RBC 2-5 H /HPF Urine WBC NONE /HPF Urine Squamous Epithelial Cells 2-5 /HPF Urine Crystals NONE /LPF Urine Bacteria NEGATIVE /HPF Urine Casts NONE /LPF Urine Mucus SMALL H /LPF Urine Culture Indicated NO Micro Results Microbiology 01/15/20 Influenza Types A,B Antigen (ANTHONY) - Final, Complete My Orders Orders - DOTTIE DONALDSON Accucheck Stat ONCE (01/15/20 17:19) Ekg Tracing (01/15/20 17:19) Cbc With Automated Diff (01/15/20 17:40) Magnesium (01/15/20 17:40) Chest 1 View, Ap/Pa Only (01/15/20 17:40) Comprehensive Metabolic Panel (01/15/20 17:40) Myoglobin Serum (01/15/20 17:40) Protime With Inr (01/15/20 17:40) Partial Thromboplastin Time (01/15/20 17:40) Monitor-Rhythm Ecg Trace Only (01/15/20 17:40) Ed Iv/Invasive Line Start (01/15/20 17:40) Troponin I (01/15/20 17:40) Lorazepam Injection (Ativan Injection) (01/15/20 17:42) Influenza A And B Antigens (01/15/20 17:43) Thyroid Analyzer (01/15/20 17:56) Ua Culture If Indicated (01/15/20 18:00) Metoprolol Tartrate Injection (Lopressor (01/15/20 19:00) Medications Given in ED Current Medications Medications Dose Ordered Sig/Juan David Route Start Time Stop Time Status Last Admin Dose Admin Metoprolol Tartrate 5 mg ONCE ONCE IV 01/15/20 19:00 01/15/20 19:01 DC 01/15/20 19:09 5 MG Vital Signs/I&O 01/15/20 17:26 Temp 36.7 Pulse 82 Resp 20 B/P (MAP) 196/136 (156) O2 Delivery Room Air Capillary Refill : Less Than 3 Seconds Blood Pressure Mean: 156 Point of Care Testing Finger Stick Blood Glucose: 99 Progress Note : Time: 17:25 Progress Note Patient seen and evaluated, will obtain EKG, labs, chest x-ray, and Ativan 0.5 mg IV. Continue to monitor. 1800 Reassured patient that labs are all WNL. Will give Metoprolol 5mg IV B/P continues to be 160-180/110-120. 1845 Continues to be tearful and open to talking to this provider. Discussed the physical health affects she is experiencing because her mental health is not being controlled. She is open to starting a medication to take daily and then use the Ativan PRN. She will see a counselor. 1915 B/P 150/98, patient reports to be feeling much better. She agrees to follow-up with her primary care provider in use medication as prescribed. She'll continue to monitor her blood pressure. ECG Initial ECG Impression Date: Jan 15, 2020 Initial ECG Impression Time: 17:32 Initial ECG Rate: 89 Initial ECG Rhythm: Normal Sinus Initial ECG Intervals: Normal Initial ECG Intervals PA 184, QRSD 92, QT 344, QTC 419. [place] P 42, QRS 12, T 95. Initial ECG Impression: Normal Initial ECG Comparisson: No Previous ECG Available Diagnostic Imaging Diagonstic Imaging: Xray Plain Films/CT/US/NM/MRI: chest Comments [place] NAME: [facility] REC#: [id number] PT STATUS: REG ER : 1970 PHYSICIAN: DOTTIE DONALDSON ADMIT DATE: 01/15/20/ER Signed Date of Exam:01/15/20 CHEST 1 VIEW, AP/PA ONLY CHEST 1 VIEW, AP/PA ONLY Indication: Dizziness and hypertension Comparison: 03/18/2019 Findings: No focal airspace disease in the visualized lungs. Please note that the posterior lower lobes are poorly evaluated by portable radiography. No pleural effusion or pneumothorax. Normal cardiomediastinal silhouette. Impression: 1. No acute cardiopulmonary process by portable radiography. Dictated by: Dictated on workstation # [id number] Dict: 01/15/20 1758 Trans: 01/15/20 1759 [facility] [id number] Interpreted by: PATRICK EASON MD Reviewed: Reviewed by Me Departure Impression Primary Impression: Anxiety Additional Impression: Hypertension Qualified Codes: I10 - Essential (primary) hypertension Disposition: HOME, SELF-CARE Condition: Improved Departure-Patient Inst. Decision time for Depature: 18:50 Referrals: NALLELY DELEON MD (PCP/Family) Primary Care Physician Patient Instructions: Anxiety, Adult (DC), High Blood Pressure (DC) Add. Discharge Instructions: Begin taking Paroxetine as prescribed once daily. Understanding that it may take 2-3 weeks for the medication to become effective. Continue to use Ativan every 8 hours as needed for further anxiety. Considers mental health provider, you can be referred by Dr. Deleon's office or seek care at [facility] or [facility] mental health. Continue to monitor your blood pressure. Continue taking her metoprolol as prescribed. Keep your scheduled follow-up with Dr. Deleon for this week. Return to emergency department for new, urgent health care needs. All discharge instructions reviewed with patient and/or family. Voiced understanding. Scripts Lorazepam (Ativan) 0.5 Mg Tablet 0.5 MG PO TID PRN for ANXIETY, #12 TAB 0 Refills Prov: DOTTIE DONALDSON 01/15/20 Paroxetine HCl (Paroxetine ER) 12.5 Mg Tab.er.24h 12.5 MG PO DAILY, #30 TAB 0 Refills Prov: DOTTIE DONALDSON 01/15/20 Copy Copies To 1: NALLELY DELEON MD, AMY ARNP Jan 15, 2020 17:55
--- NOTE | 2020-01-15 18:00 | Diagnostic Imaging Report ---
CHEST 1 VIEW, AP/PA ONLY Indication: Dizziness and hypertension Comparison: 03/18/2019 Findings: No focal airspace disease in the visualized lungs. Please note that the posterior lower lobes are poorly evaluated by portable radiography. No pleural effusion or pneumothorax. Normal cardiomediastinal silhouette. Impression: 1. No acute cardiopulmonary process by portable radiography. Dictated by: Dictated on workstation # [id number]
[2020-01-15 18:03] LABS: ALANINE AMINOTRANSFERASE 10 U/L (0-55); ALBUMIN 3.9 GM/DL (3.2-4.5); ALKALINE PHOSPHATASE 74 U/L (40-136); BILIRUBIN,TOTAL 0.2 MG/DL (0.1-1.0); BUN/CREATININE RATIO 19; CALCIUM 9.3 MG/DL (8.5-10.1); CARBON DIOXIDE 22 MMOL/L (21-32); CHLORIDE 108 MMOL/L (98-107); CREATININE SERUM 0.83 MG/DL (0.60-1.30); GFR ESTIMATED > 60; GLUCOSE 95 MG/DL (70-105); MAGNESIUM 1.8 MG/DL (1.6-2.4); POTASSIUM 3.6 MMOL/L (3.6-5.0); SODIUM 139 MMOL/L (135-145); TOTAL PROTEIN 7.1 GM/DL (6.4-8.2)
[2020-01-15 18:18] LABS: BILIRUBIN,URINE NEGATIVE (NEGATIVE); CLARITY,URINE CLEAR; COLOR,URINE YELLOW; GLUCOSE, URINE (UA) NEGATIVE (NEGATIVE); KETONES,URINE NEGATIVE (NEGATIVE); LEUKOCYTE ESTERASE ,URINE NEGATIVE (NEGATIVE); NITRITE,URINE NEGATIVE (NEGATIVE); PROTEIN,URINE NEGATIVE (NEGATIVE)
[2020-01-15 18:29] LABS: BACTERIA,URINE NEGATIVE /HPF
[2020-01-15] MEDS ORDERED: PARO12.523 PO (18:52)
[2020-01-15] MEDS ORDERED: LORA-404 PO (18:52)
[2020-01-15] MEDS ORDERED: meTOprolol 5 MG/5 ML (LOPRESSOR) VIAL IV ONE (19:00)
[2020-01-15 19:44] VITALS: BP 179/106
== END 2020-01-15 19:46 | disposition home or self-care (01) ==
LOC: EDUNIT# 17:18 → ER 17:19
DX: F41.9 Anxiety disorder, unspecified (principal); I10 Essential (primary) hypertension; F17.210 Nicotine dependence, cigarettes, uncomplicated; Z88.6 Allergy status to analgesic agent; Z88.0 Allergy status to penicillin; Z88.1 Allergy status to other antibiotic agents; Z88.8 Allergy status to other drugs, medicaments and biological substances; Z87.820 Personal history of traumatic brain injury; Z86.59 Personal history of other mental and behavioral disorders
CPT/HCPCS: 36415; 71045; 80053; 81000; 82962; 83735; 83874; 84443; 84484; 85025; 85610; 85730; 87804; 93041; 96374; 96375

== ENCOUNTER → 2020-01-28 | Outpatient (CLI) | payer OTHER ==
[~2020-01-28] MED LIST changes: +PARO12.523 PO
[2020-01-28 07:35] LABS: ALANINE AMINOTRANSFERASE 10 U/L (0-55); ALBUMIN 3.9 GM/DL (3.2-4.5); ALKALINE PHOSPHATASE 87 U/L (40-136); BILIRUBIN,TOTAL 0.2 MG/DL (0.1-1.0); BUN/CREATININE RATIO 22; CALCIUM 9.2 MG/DL (8.5-10.1); CARBON DIOXIDE 21 MMOL/L (21-32); CHLORIDE 108 MMOL/L (98-107); CHOLESTEROL 182 MG/DL (< 200); CREATININE SERUM 0.88 MG/DL (0.60-1.30); GFR ESTIMATED > 60; GLUCOSE 111 MG/DL (70-105); HDL CHOLESTEROL 34 MG/DL (40-60); POTASSIUM 4.3 MMOL/L (3.6-5.0); SODIUM 138 MMOL/L (135-145); TRIGLYCERIDES 214 MG/DL (<150); VLDL CHOLESTEROL 43 MG/DL (5-40)
== END ==
LOC: LAB 06:58
PROVIDERS: ATTEND Internal Medicine Cardiovascular Disease
DX: I10 Essential (primary) hypertension (principal); F41.9 Anxiety disorder, unspecified; Z72.0 Tobacco use
CPT/HCPCS: 36415; 80053; 80061

== ENCOUNTER 2020-05-31 06:43 | Emergency (ER) | payer OTHER ==
[~2020-05-31] VITALS: Ht 165 cm; Wt 97.3 kg
[2020-05-31] MEDS ORDERED: fentaNYL INJECTION 100 MCG/2 ML AMP IVP STA (07:11)
[2020-05-31] MEDS ORDERED: LACTATED RINGERS 1,000 ML IV STA (07:11)
[2020-05-31] MEDS ORDERED: ONDANSETRON 4 MG/2 ML (SDV) Z0FRAN IVP ONE (07:15)
--- NOTE | 2020-05-31 07:20 | ED Abdominal Pain ---
General Chief Complaint: Abdominal/GI Problems Stated Complaint: POSS HERNIA,VOMITING Source of Information: Patient Exam Limitations: No Limitations History of Present Illness Date Seen by Provider: May 31, 2020 Time Seen by Provider: 07:05 Initial Comments Report of right-sided abdominal pain that has been ongoing over the last 2 weeks and she believes is related to a hernia. Has noted a few days of nausea and vomiting as well as constipation. This morning, she bent over to lease picker something and felt a sharp right-sided pain that persisted and she is concerned something significant is going on. Her mom last year of colon cancer. Patient suffers from anxiety and is quite anxious currently. She is worried something terrible was going on. Reports that she has a hernia on the right side that she is just Dr. Moreno for or on June 17. Denies contact with [facility] and gets tested every few weeks because she works at a [employer]. Denies upper respiratory symptoms. Timing/Duration: 1 Week, Getting Worse Severity/Quality: Moderate, Severe, Sharp Location: RLQ Radiation: RUQ, Groin Activities at Onset: None Modifying Factors: Worsens With Movement, Worsens With Palpation; Improves With Resting Associated Symptoms: No Back Pain, No Chest Pain, No Fever/Chills; Nausea/Vomiting; No Shortness of Air, No Weakness Allergies and Home Medications Allergies Coded Allergies: aspirin (Verified Allergy, Severe, MAKES HER DEATHLY ILL, 10/02/12) ibuprofen (Verified Allergy, Severe, hives, 05/31/20) Penicillins (Verified Allergy, Intermediate, HIVES, 10/02/12) bupropion HCl (Verified Allergy, Intermediate, HIVES, 10/02/12) cefprozil (Verified Allergy, Intermediate, HIVES, 10/02/12) naproxen (Verified Allergy, Intermediate, HIVES, 10/02/12) Uncoded Allergies: iv dye (Allergy, Unknown, 05/31/20) Home Medications Lorazepam 0.5 Mg Tablet, 0.5 MG PO BID PRN for ANXIETY Prescribed by: MARIANNE OH on 03/18/19 0908 Lorazepam 0.5 Mg Tablet, 0.5 MG PO TID PRN for ANXIETY Prescribed by: DOTTIE DONALDSON on 01/15/20 0767 Metoprolol Tartrate 50 Mg Tablet, 100 MG PO DAILY, (Reported) Paroxetine HCl 12.5 Mg Tab.er.24h, 12.5 MG PO DAILY Prescribed by: DOTTIE DONALDSON on 01/15/20 0452 Patient Home Medication List Home Medication List Reviewed: Yes Review of Systems Review of Systems Constitutional: see HPI; No chills, No fever EENTM: No Symptoms Reported Respiratory: No Symptoms Reported Cardiovascular: Denies Chest Pain, Denies Edema Gastrointestinal: Abdominal Pain, Nausea, Vomiting Genitourinary: No Symptoms Reported Musculoskeletal: No back pain; muscle pain Skin: no symptoms reported All Other Systems Reviewed Negative Unless Noted: Yes Past Iqddlmr-Wrouej-Ubyyld Hx Past Med/Social Hx: Reviewed Nursing Past Med/Soc Hx Patient Social History Alcohol Use: Occasionally Uses Alcohol Beverage of Choice: Beer Recreational Drug Use: No Drug of Choice: Marijuana Smoking Status: Current Everyday Smoker Type Used: Cigarettes 2nd Hand Smoke Exposure: Yes Recent Foreign Travel: No Contact w/Someone Who Travel: No Recent Hopitalizations: No Immunizations Up To Date Tetanus Booster (TDap): Unknown Date of Influenza Vaccine: Aug 03, 2019 Seasonal Allergies Seasonal Allergies: No Past Medical History Surgeries: Yes (parathyroid removed/biopsy) Adenoidectomy, Gallbladder, Tonsillectomy, Tubal Ligation Respiratory: No Currently Using CPAP: No Currently Using BIPAP: No Cardiac: Yes Hypertension Neurological: Yes (headaches- due to head injury in november 2014) Headaches /Migraines, Traumatic Brain Injury Reproductive Disorders: No (Tubes are tied) 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 Disorders: Denies 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 oz. 90.715521nz; 34.00 BMI Method:Stated General Appearance: WD/WN, mild distress HEENT: PERRL/EOMI, pharynx normal Neck: full range of motion, supple Respiratory: lungs clear, normal breath sounds Cardiovascular: regular rate, rhythm, no murmur Peripheral Pulses: 2+ Dorsalis Pedis (R), 2+ Left Dors-Pedis (L), 2+ Radial Pulses (R), 2+ Radial Pulses (L) Gastrointestinal: soft; No distended, No guarding; tenderness (right-sided abdominal pain) Extremities: non-tender, normal inspection Neurologic/Psychiatric: alert, oriented x 3 Skin: normal color, warm/dry Procedures/Interventions Psych Intervention: Screening/Mental Health Progress/Results/Core Measures Results/Orders Lab Results Laboratory Tests Test 05/31/20 07:10 05/31/20 07:15 Range/Units White Blood Count 10.5 4.3-11.0 10^3/uL Red Blood Count 4.38 4.35-5.85 10^6/uL Hemoglobin 13.0 11.5-16.0 G/DL Hematocrit 40 35-52 % Mean Corpuscular Volume 91 80-99 FL Mean Corpuscular Hemoglobin 30 25-34 PG Mean Corpuscular Hemoglobin Concent 33 32-36 G/DL Red Cell Distribution Width 13.9 10.0-14.5 % Platelet Count 306 130-400 10^3/uL Mean Platelet Volume 10.2 7.4-10.4 FL Neutrophils (%) (Auto) 57 42-75 % Lymphocytes (%) (Auto) 33 12-44 % Monocytes (%) (Auto) 8 0-12 % Eosinophils (%) (Auto) 2 0-10 % Basophils (%) (Auto) 0 0-10 % Neutrophils # (Auto) 6.0 1.8-7.8 X 10^3 Lymphocytes # (Auto) 3.5 1.0-4.0 X 10^3 Monocytes # (Auto) 0.8 0.0-1.0 X 10^3 Eosinophils # (Auto) 0.2 0.0-0.3 10^3/uL Basophils # (Auto) 0.0 0.0-0.1 10^3/uL Sodium Level 138 135-145 MMOL/L Potassium Level 4.5 3.6-5.0 MMOL/L Chloride Level 108 H 98-107 MMOL/L Carbon Dioxide Level 20 L 21-32 MMOL/L Anion Gap 10 5-14 MMOL/L Blood Urea Nitrogen 20 H 7-18 MG/DL Creatinine 0.92 0.60-1.30 MG/DL Estimat Glomerular Filtration Rate > 60 BUN/Creatinine Ratio 22 Glucose Level 141 H 70-105 MG/DL Calcium Level 8.8 8.5-10.1 MG/DL Corrected Calcium 8.9 8.5-10.1 MG/DL Total Bilirubin 0.2 0.1-1.0 MG/DL Aspartate Amino Transf (AST/SGOT) 12 5-34 U/L Alanine Aminotransferase (ALT/SGPT) 6 0-55 U/L Alkaline Phosphatase 80 40-136 U/L C-Reactive Protein High Sensitivity 0.82 H 0.00-0.50 MG/DL Total Protein 6.9 6.4-8.2 GM/DL Albumin 3.9 3.2-4.5 GM/DL Serum Test, Qualitative NEGATIVE NEGATIVE Urine Color YELLOW Urine Clarity CLEAR Urine pH 6.0 5-9 Urine Specific [place] 1.025 H 1.016-1.022 Urine Protein NEGATIVE NEGATIVE Urine Glucose (UA) NEGATIVE NEGATIVE Urine Ketones NEGATIVE NEGATIVE Urine Nitrite NEGATIVE NEGATIVE Urine Bilirubin NEGATIVE NEGATIVE Urine Urobilinogen 0.2 < = 1.0 MG/DL Urine Leukocyte Esterase 1+ H NEGATIVE Urine RBC (Auto) NEGATIVE NEGATIVE Urine RBC NONE /HPF Urine WBC RARE /HPF Urine Squamous Epithelial Cells 2-5 /HPF Urine Crystals NONE /LPF Urine Bacteria TRACE /HPF Urine Casts NONE /LPF Urine Mucus NEGATIVE /LPF Urine Culture Indicated NO My Orders Orders - ABDIRIZAK MCDANIEL MD Cbc With Automated Diff (05/31/20 07:11) Comprehensive Metabolic Panel (05/31/20 07:11) Hs C Reactive Protein (05/31/20 07:11) Ua Culture If Indicated (05/31/20 07:11) Ondansetron Injection (Zofran Injectio (05/31/20 07:15) Lactated Ringers (Lr 1000 Ml Iv Solution (05/31/20 07:11) Ed Iv/Invasive Line Start (05/31/20 07:11) Fentanyl Injection (Sublimaze Injection (05/31/20 07:11) Hcg,Qualitative Serum (05/31/20 07:11) Ct Abdomen/Pelvis Wo (05/31/20 07:14) Medications Given in ED Current Medications Medications Dose Ordered Sig/Juan David Route Start Time Stop Time Status Last Admin Dose Admin Ondansetron HCl 4 mg ONCE ONCE IVP 05/31/20 07:15 05/31/20 07:16 DC 05/31/20 07:29 4 MG Vital Signs/I&O 05/31/20 06:43 Temp 36.3 Pulse 69 Resp 16 B/P (MAP) 192/130 (150) Pulse Ox 97 O2 Delivery Room Air Progress Progress Note : Progress Note Seen and evaluated. IV, labs, UA, CT abdomen and pelvis without contrast due to stated contrast allergy ordered. Fentanyl 50 g IV, LR 1 L bolus and Zofran 4 mg IV ordered. Monitor patient. 0845 overall doing much better. Patient reassured after CT results noted. We did discuss treatment for constipation and she will do that outpatient. She will keep her appointment with Dr. Moreno as she has family history of colon cancer and will need annual screenings. I do not see hernia on the CT scan and this was told to the patient as well. Discharged home with return precautions. Patient verbalize understanding instructions and agreement with plan. Diagnostic Imaging Diagonstic Imaging: CT Plain Films/CT/US/NM/MRI: abdomen, pelvis Comments NAME: KENAN VICENTE [facility] REC#: [id number] PT STATUS: REG ER : 1970 PHYSICIAN: ABDIRIZAK MCDANIEL MD ADMIT DATE: 05/31/20/ER Draft Date of Exam:05/31/20 CT ABDOMEN/PELVIS WO PROCEDURE: CT abdomen and pelvis without contrast. TECHNIQUE: Multiple contiguous axial images were obtained through the abdomen and pelvis without the use of intravenous contrast. Auto Exposure Controls were utilized during the CT exam to meet ALARA standards for radiation dose reduction. INDICATION: Right-sided abdominal pain There are no prior CT abdomen/pelvis examinations available for comparison. Reportedly, there is clinical concern regarding a right-sided hernia. There is no evidence for an extension of bowel into the inguinal canals. There is no abdominal wall defect identified either. The liver is borderline enlarged. The gallbladder is surgically absent. The spleen, pancreas, adrenals, kidneys, aorta and inferior vena cava show no sign of an acute abnormality. There are several nonobstructive calculi within both kidneys. The largest of these calculi in each kidney measures approximately 5-6 mm. The stomach is not well-distended and consequently difficult to assess. There does appear to be a small hiatal hernia. There is no pelvic mass or free fluid collection evident. The uterus is prominent and eccentric to the right. The endometrial lining is thickened. This finding is nonspecific, however. The urinary bladder is grossly unremarkable. The appendix was not particularly well visualized but there are no indirect signs of acute appendicitis. The bone windows show no sign of a fracture or of a destructive lesion. The lung bases are clear. IMPRESSION: 1. There is no evidence for an acute abnormality of the abdomen and pelvis. In particular, there is no sign of herniation of bowel to the inguinal canals. There is no defect within the abdominal wall either. 2. There is borderline hepatomegaly. 3. There are nonobstructive calculi within both kidneys. 4. The endometrial lining of the uterus is thickened. This finding is nonspecific, however. Correlation with patient's menstrual cycle recommended. Dictated on workstation # [id number] Dict: 05/31/20 0756 Trans: 05/31/20 0826 [facility] [id number] Interpreted by: YAZMIN ROCHA MD Electronically signed by: Departure Impression Primary Impression: Right sided abdominal pain Additional Impression: Constipation Qualified Codes: K59.00 - Constipation, unspecified Disposition: 01 HOME, SELF-CARE Condition: Improved Departure-Patient Inst. Decision time for Depature: 08:50 Referrals: NALLELY DELEON MD (PCP/Family) Primary Care Physician Patient Instructions: Severe Abdominal Pain, Adult (DC), Constipation, Adult (DC) Add. Discharge Instructions: All discharge instructions reviewed with patient and/or family. Voiced understanding. Drink plenty of fluids. Eat a high fiber diet. You may use MiraLAX or the generic one capful twice daily for the next 3 days and then one capful daily t hereafter to keep stools soft. You may increase or decrease the dose to keep stools in normal range. Due to the amount of constipation that you currently have, you would benefit from an enema or laxative suppository. You may get a fleets enema [id number] and use per package directions today. Keep follow- up with Dr. Moreno to discuss colon cancer risk due to your family history and the need for screening. Also discuss your abdominal pain as needed. Return for worse pain, fever, vomiting, weakness, breathing problems or other concerns as needed. Copy Copies To 1: RACHEAL MORENO TIMOTHY D MD May 31, 2020 07:20
[2020-05-31 07:22] LABS: BASOPHILS % (AUTO) 0 % (0-10); EOSINOPHILS # (AUTO) 0.2 10^3/uL (0.0-0.3); EOSINOPHILS % (AUTO) 2 % (0-10); HEMATOCRIT 40 % (35-52); LYMPHOCYTES # (AUTO) 3.5 X 10^3 (1.0-4.0); LYMPHOCYTES % (AUTO) 33 % (12-44); MEAN CORPUSCULAR HEMOGLOBIN 30 PG (25-34); MEAN CORPUSCULAR HGB CONC 33 G/DL (32-36); MEAN CORPUSCULAR VOLUME 91 FL (80-99); MEAN PLATELET VOLUME 10.2 FL (7.4-10.4); MONOCYTES # (AUTO) 0.8 X 10^3 (0.0-1.0); MONOCYTES % (AUTO) 8 % (0-12); NEUTROPHILS % (AUTO) 57 % (42-75); PLATELET COUNT 306 10^3/uL (130-400); RED CELL DISTRIBUTION WIDTH 13.9 % (10.0-14.5); WHITE BLOOD COUNT 10.5 10^3/uL (4.3-11.0)
[2020-05-31 07:29] LABS: BILIRUBIN,URINE NEGATIVE (NEGATIVE); CLARITY,URINE CLEAR; COLOR,URINE YELLOW; GLUCOSE, URINE (UA) NEGATIVE (NEGATIVE); KETONES,URINE NEGATIVE (NEGATIVE); LEUKOCYTE ESTERASE ,URINE 1+ (NEGATIVE); NITRITE,URINE NEGATIVE (NEGATIVE); PROTEIN,URINE NEGATIVE (NEGATIVE)
[2020-05-31 07:33] LABS: ALBUMIN 3.9 GM/DL (3.2-4.5); CHLORIDE 108 MMOL/L (98-107); POTASSIUM 4.5 MMOL/L (3.6-5.0); SODIUM 138 MMOL/L (135-145)
[2020-05-31 07:34] LABS: CALCIUM 8.8 MG/DL (8.5-10.1)
[2020-05-31 07:36] LABS: GLUCOSE 141 MG/DL (70-105); TOTAL PROTEIN 6.9 GM/DL (6.4-8.2)
[2020-05-31 07:37] LABS: BILIRUBIN,TOTAL 0.2 MG/DL (0.1-1.0); CARBON DIOXIDE 20 MMOL/L (21-32)
[2020-05-31 07:39] LABS: ALKALINE PHOSPHATASE 80 U/L (40-136); CREATININE SERUM 0.92 MG/DL (0.60-1.30); GFR ESTIMATED > 60
[2020-05-31 07:40] LABS: BUN/CREATININE RATIO 22
[2020-05-31 07:42] LABS: ALANINE AMINOTRANSFERASE 6 U/L (0-55)
[2020-05-31 07:49] LABS: BACTERIA,URINE TRACE /HPF; WBC,URINE RARE /HPF
--- NOTE | 2020-05-31 08:26 | Diagnostic Imaging Report ---
PROCEDURE: CT abdomen and pelvis without contrast. TECHNIQUE: Multiple contiguous axial images were obtained through the abdomen and pelvis without the use of intravenous contrast. Auto Exposure Controls were utilized during the CT exam to meet ALARA standards for radiation dose reduction. INDICATION: Right-sided abdominal pain There are no prior CT abdomen/pelvis examinations available for comparison. Reportedly, there is clinical concern regarding a right-sided hernia. There is no evidence for an extension of bowel into the inguinal canals. There is no abdominal wall defect identified either. The liver is borderline enlarged. The gallbladder is surgically absent. The spleen, pancreas, adrenals, kidneys, aorta and inferior vena cava show no sign of an acute abnormality. There are several nonobstructive calculi within both kidneys. The largest of these calculi in each kidney measures approximately 5-6 mm. The stomach is not well-distended and consequently difficult to assess. There does appear to be a small hiatal hernia. There is no pelvic mass or free fluid collection evident. The uterus is prominent and eccentric to the right. The endometrial lining is thickened. This finding is nonspecific, however. The urinary bladder is grossly unremarkable. The appendix was not particularly well visualized but there are no indirect signs of acute appendicitis. The bone windows show no sign of a fracture or of a destructive lesion. The lung bases are clear. IMPRESSION: 1. There is no evidence for an acute abnormality of the abdomen and pelvis. In particular, there is no sign of herniation of bowel to the inguinal canals. There is no defect within the abdominal wall either. 2. There is borderline hepatomegaly. 3. There are nonobstructive calculi within both kidneys. 4. The endometrial lining of the uterus is thickened. This finding is nonspecific, however. Correlation with patient's menstrual cycle recommended. Dictated by: Dictated on workstation # [id number]
--- NOTE | 2020-05-31 08:34 | NUR ---
RESTING IN BED. STATES PAIN AND ANXITY IS BETTER. BP HAS DECREASED TO 136/90.
[2020-05-31 08:56] VITALS: BP 136/86
== END 2020-05-31 08:56 | disposition home or self-care (01) ==
LOC: EDUNIT# 06:43 → ER 06:45
DX: K59.00 Constipation, unspecified (principal); I10 Essential (primary) hypertension; F41.9 Anxiety disorder, unspecified; F17.210 Nicotine dependence, cigarettes, uncomplicated; Z87.820 Personal history of traumatic brain injury; Z88.6 Allergy status to analgesic agent; Z88.1 Allergy status to other antibiotic agents; Z88.8 Allergy status to other drugs, medicaments and biological substances; Z91.041 Radiographic dye allergy status; Z88.0 Allergy status to penicillin; Z80.0 Family history of malignant neoplasm of digestive organs
CPT/HCPCS: 36415; 74176; 80053; 81000; 84703; 85025; 86141

== ENCOUNTER 2020-07-08 08:43 | Emergency (ER) | payer OTHER ==
[~2020-07-08] VITALS: Ht 165 cm; Wt 96.9 kg
[2020-07-08 09:13] LABS: BASOPHILS % (AUTO) 0 % (0-10); EOSINOPHILS # (AUTO) 0.2 10^3/uL (0.0-0.3); EOSINOPHILS % (AUTO) 2 % (0-10); HEMATOCRIT 39 % (35-52); LYMPHOCYTES % (AUTO) 31 % (12-44); MEAN CORPUSCULAR HEMOGLOBIN 30 PG (25-34); MEAN CORPUSCULAR HGB CONC 33 G/DL (32-36); MEAN CORPUSCULAR VOLUME 90 FL (80-99); MONOCYTES # (AUTO) 0.8 X 10^3 (0.0-1.0); MONOCYTES % (AUTO) 8 % (0-12); NEUTROPHILS # (AUTO) 5.8 X 10^3 (1.8-7.8); NEUTROPHILS % (AUTO) 59 % (42-75); PLATELET COUNT 317 10^3/uL (130-400); RED CELL DISTRIBUTION WIDTH 13.8 % (10.0-14.5); WHITE BLOOD COUNT 9.9 10^3/uL (4.3-11.0)
--- NOTE | 2020-07-08 09:13 | ED GU-Female ---
General Stated Complaint: VAGINAL BLEEDING Source: patient Exam Limitations: no limitations History of Present Illness Date Seen by Provider: Jul 08, 2020 Time Seen by Provider: 08:50 Initial Comments The patient presents ER by private conveyance from her place of work with chief complaint she's having some nausea, right-sided pelvis pain and vaginal bleeding for the past 8 days. She says the bleeding is gotten worse over the past 2 days. She was always regular with her periods until about 3 months ago when she stopped having a period. She assumed it is because she was menopausal. Last Thursday she started having heavy bleeding and has gone through 6 boxes of tampons in the past week. Her typical periods last about 5 days. She denies dysuria fever chills cough shortness of air. She's had her gallbladder out, tubes tied. She says last vaginal intercourse was 5 years ago. She is not on blood thinners and denies taking NSAIDs stating she has an allergy to naproxen and ibuprofen. Patient says that she had some workup by Dr. Simmons, gynecology including an ultrasound and endometrial biopsy. She was told that she had thickened endometrial lining. Dr. Simmons was working her up for the pain she has chronically in her right side. Apparently Dr. Simmons felt that it was related to her hernia and the patient followed up with Dr. Eduardo. Patient had a colonoscopy less than a year ago Dr. Meléndez but no findings. Allergies and Home Medications Allergies Coded Allergies: aspirin (Verified Allergy, Severe, MAKES HER DEATHLY ILL, 10/02/12) ibuprofen (Verified Allergy, Severe, hives, 05/31/20) Penicillins (Verified Allergy, Intermediate, HIVES, 10/02/12) bupropion HCl (Verified Allergy, Intermediate, HIVES, 10/02/12) cefprozil (Verified Allergy, Intermediate, HIVES, 10/02/12) naproxen (Verified Allergy, Intermediate, HIVES, 10/02/12) Uncoded Allergies: iv dye (Allergy, Unknown, 05/31/20) Home Medications Lisinopril 10 Mg Tablet, 10 MG PO DAILY, (Reported) Lorazepam 0.5 Mg Tablet, 0.5 MG PO BID PRN for ANXIETY Prescribed by: MARIANNE OH on 03/18/19 0908 Lorazepam 0.5 Mg Tablet, 0.5 MG PO TID PRN for ANXIETY Prescribed by: DOTTIE DONALDSON on 01/15/201851 Metoprolol Tartrate 50 Mg Tablet, 100 MG PO DAILY, (Reported) Paroxetine HCl 12.5 Mg Tab.er.24h, 12.5 MG PO DAILY Prescribed by: DOTTIE DONALDSON on 01/15/201851 Patient Home Medication List Home Medication List Reviewed: Yes Review of Systems Review of Systems Constitutional: No chills, No diaphoresis EENTM: No ear discharge, No ear pain Respiratory: No cough, No short of breath Cardiovascular: No chest pain, No edema Gastrointestinal: No abdominal pain, No constipation, No diarrhea; nausea, vomiting Genitourinary: denies burning, denies discharge, denies dysuria Musculoskeletal: No back pain, No joint pain All Other Systemes Reviewed Negative Unless Noted: Yes Past Xbypfrb-Dohlyr-Npvvvt Hx Patient Social History Alcohol Use: Occasionally Uses Alcohol Beverage of Choice: Beer Recreational Drug Use: Yes Drug of Choice: Marijuana Smoking Status: Current Everyday Smoker Type Used: Cigarettes 2nd Hand Smoke Exposure: Yes Recent Foreign Travel: No Contact w/Someone Who Travel: No Recent Hopitalizations: No Immunizations Up To Date Tetanus Booster (TDap): Unknown Date of Influenza Vaccine: Aug 03, 2019 Seasonal Allergies Seasonal Allergies: No Past Medical History Surgeries: Yes (parathyroid removed/biopsy) Adenoidectomy, Gallbladder, Tonsillectomy, Tubal Ligation Respiratory: No Currently Using CPAP: No Currently Using BIPAP: No Cardiac: Yes Hypertension Neurological: Yes (headaches- due to head injury in november 2014) Headaches /Migraines, Traumatic Brain Injury Reproductive Disorders: No (Tubes are tied) 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 oz. 90.738764gt; 35.00 BMI Method:Stated General Appearance: WD/WN, mild distress HEENT: PERRL/EOMI, pharynx normal Neck: full range of motion, normal inspection Cardiovascular: normal peripheral pulses, regular rate, rhythm Respiratory: no respiratory distress, no accessory muscle use Gastrointestinal: normal bowel sounds (active), non tender, soft, no organomegaly; No guarding, No rebound, No mass Pelvic: normal external exam, vaginal bleeding (blood clots at the cervical os. Thin sanguinous secretions. No evidence of trauma or laceration. No tumors noted.) Neurologic/Psychiatric: alert, normal mood/affect, oriented x 3 Skin: normal color, warm/dry Procedures/Interventions Psych Intervention: Screening/Mental Health Progress/Results/Core Measures Suspected Sepsis SIRS Temperature: Pulse: Respiratory Rate: Laboratory Tests 07/08/20 09:04: White Blood Count 9.9 Blood Pressure / Mean: Laboratory Tests 07/08/20 09:04: Creatinine 0.91, INR Comment 1.0, Platelet Count 317, Total Bilirubin 0.3 Results/Orders Lab Results Laboratory Tests Test 07/08/20 09:04 Range/Units White Blood Count 9.9 4.3-11.0 10^3/uL Red Blood Count 4.33 L 4.35-5.85 10^6/uL Hemoglobin 13.0 11.5-16.0 G/DL Hematocrit 39 35-52 % Mean Corpuscular Volume 90 80-99 FL Mean Corpuscular Hemoglobin 30 25-34 PG Mean Corpuscular Hemoglobin Concent 33 32-36 G/DL Red Cell Distribution Width 13.8 10.0-14.5 % Platelet Count 317 130-400 10^3/uL Mean Platelet Volume 10.0 7.4-10.4 FL Neutrophils (%) (Auto) 59 42-75 % Lymphocytes (%) (Auto) 31 12-44 % Monocytes (%) (Auto) 8 0-12 % Eosinophils (%) (Auto) 2 0-10 % Basophils (%) (Auto) 0 0-10 % Neutrophils # (Auto) 5.8 1.8-7.8 X 10^3 Lymphocytes # (Auto) 3.0 1.0-4.0 X 10^3 Monocytes # (Auto) 0.8 0.0-1.0 X 10^3 Eosinophils # (Auto) 0.2 0.0-0.3 10^3/uL Basophils # (Auto) 0.0 0.0-0.1 10^3/uL Prothrombin Time 13.9 12.2-14.7 SEC INR Comment 1.0 0.8-1.4 Activated Partial Thromboplast Time 37 H 24-35 SEC Sodium Level 138 135-145 MMOL/L Potassium Level 4.2 3.6-5.0 MMOL/L Chloride Level 105 98-107 MMOL/L Carbon Dioxide Level 22 21-32 MMOL/L Anion Gap 11 5-14 MMOL/L Blood Urea Nitrogen 18 7-18 MG/DL Creatinine 0.91 0.60-1.30 MG/DL Estimat Glomerular Filtration Rate > 60 BUN/Creatinine Ratio 20 Glucose Level 118 H 70-105 MG/DL Calcium Level 8.8 8.5-10.1 MG/DL Corrected Calcium 8.7 8.5-10.1 MG/DL Total Bilirubin 0.3 0.1-1.0 MG/DL Aspartate Amino Transf (AST/SGOT) 13 5-34 U/L Alanine Aminotransferase (ALT/SGPT) 10 0-55 U/L Alkaline Phosphatase 84 40-136 U/L Total Protein 7.6 6.4-8.2 GM/DL Albumin 4.1 3.2-4.5 GM/DL Lipase 26 8-78 U/L Thyroid Stimulating Hormone (TSH) 1.08 0.35-4.94 UIU/ML My Orders Orders - KRYSTALNANY Yana Cbc With Automated Diff (07/08/20 09:06) Comprehensive Metabolic Panel (07/08/20 09:06) Ed Iv/Invasive Line Start (07/08/20 09:06) Protime With Inr (07/08/20 09:06) Partial Thromboplastin Time (07/08/20 09:06) Lipase (07/08/20 09:06) Thyroid Stimulating Hormone (07/08/20 09:06) Vital Signs/I&O 07/08/20 09:14 Temp 36.0 Pulse 83 Resp 20 B/P (MAP) 126/98 (107) Pulse Ox 98 Capillary Refill : Progress Note : Time: 09:15 Progress Note We'll give her some Tylenol for her pain, Zofran for her nausea and check some labs to rule out a significant anemia causing her feeling of being tired. Plan to do a speculum exam looking for over injury or tumor on the cervix. If These things are ruled out then we can have her follow-up with gynecology. If she has significant white count or intractable pain we may consider getting a CT scan to rule out other dangerous pathology. Ultrasound is not available today. Ultrasound from 2019 of the pelvis demonstrated no focal masses involving the uterus such as fibroids. Endometrial lining measured 13 mm at that time. Departure Impression Primary Impression: Abnormal uterine bleeding (AUB) Disposition: 01 HOME, SELF-CARE Condition: Stable Departure-Patient Inst. Decision time for Depature: 10:03 Referrals: ARNOLD SIMMONS JOHN D MD (PCP/Family) Primary Care Physician Patient Instructions: Heavy Periods (DC) Add. 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 Thursday, tomorrow please call her for an appointment. Drink plenty fluids. Return to the ER if you are experiencing chest pain, shortness of air or other worrisome symptoms. Work/School Note: Work Release Form Date Seen in the Emergency Department: Jul 08, 2020 Return to Work: Jul 08, 2020 Restrictions: No Restrictions NANY RICE Jul 08, 2020 09:13
[2020-07-08] MEDS ORDERED: LISI10TA2 PO (09:25)
[2020-07-08 09:26] LABS: PROTHROMBIN TIME PATIENT 13.9 SEC (12.2-14.7)
[2020-07-08 09:52] LABS: ALANINE AMINOTRANSFERASE 10 U/L (0-55); ALBUMIN 4.1 GM/DL (3.2-4.5); ALKALINE PHOSPHATASE 84 U/L (40-136); BILIRUBIN,TOTAL 0.3 MG/DL (0.1-1.0); BUN/CREATININE RATIO 20; CALCIUM 8.8 MG/DL (8.5-10.1); CARBON DIOXIDE 22 MMOL/L (21-32); CHLORIDE 105 MMOL/L (98-107); CREATININE SERUM 0.91 MG/DL (0.60-1.30); GFR ESTIMATED > 60; GLUCOSE 118 MG/DL (70-105); LIPASE 26 U/L (8-78); POTASSIUM 4.2 MMOL/L (3.6-5.0); SODIUM 138 MMOL/L (135-145); TOTAL PROTEIN 7.6 GM/DL (6.4-8.2)
[2020-07-08 10:22] VITALS: BP 123/87
== END 2020-07-08 10:21 | disposition home or self-care (01) ==
LOC: EDUNIT# 08:43 → ER 08:45
DX: N93.9 Abnormal uterine and vaginal bleeding, unspecified (principal); I10 Essential (primary) hypertension; F41.9 Anxiety disorder, unspecified; F17.210 Nicotine dependence, cigarettes, uncomplicated; Z88.6 Allergy status to analgesic agent; Z87.820 Personal history of traumatic brain injury; Z88.0 Allergy status to penicillin; Z88.8 Allergy status to other drugs, medicaments and biological substances; Z88.1 Allergy status to other antibiotic agents; Z91.041 Radiographic dye allergy status
CPT/HCPCS: 36415; 80053; 83690; 84443; 85025; 85610; 85730

== ENCOUNTER 2020-07-10 23:11 | Emergency (ER) | payer OTHER ==
[~2020-07-10] VITALS: Ht 165 cm; Wt 96.1 kg
[~2020-07-10 23:11] MED LIST changes: +LISI10TA2 PO
[2020-07-10] MEDS ORDERED: LACTATED RINGERS 1,000 ML IV ONE (23:21)
[2020-07-10] MEDS ORDERED: METO50TA7 (23:52)
[2020-07-10] MEDS ORDERED: ESCI10TA55 (23:52)
[2020-07-11 00:02] LABS: BASOPHILS % (AUTO) 0 % (0-10); EOSINOPHILS # (AUTO) 0.3 10^3/uL (0.0-0.3); EOSINOPHILS % (AUTO) 2 % (0-10); HEMATOCRIT 37 % (35-52); LYMPHOCYTES # (AUTO) 4.2 X 10^3 (1.0-4.0); LYMPHOCYTES % (AUTO) 33 % (12-44); MEAN CORPUSCULAR HEMOGLOBIN 30 PG (25-34); MEAN CORPUSCULAR HGB CONC 33 G/DL (32-36); MEAN CORPUSCULAR VOLUME 91 FL (80-99); MONOCYTES # (AUTO) 0.9 X 10^3 (0.0-1.0); MONOCYTES % (AUTO) 7 % (0-12); NEUTROPHILS # (AUTO) 7.3 X 10^3 (1.8-7.8); NEUTROPHILS % (AUTO) 58 % (42-75); PLATELET COUNT 329 10^3/uL (130-400); RED CELL DISTRIBUTION WIDTH 13.6 % (10.0-14.5); WHITE BLOOD COUNT 12.7 10^3/uL (4.3-11.0)
[2020-07-11] MEDS ORDERED: ONDANSETRON 4 MG/2 ML (SDV) Z0FRAN IVP ONE (00:15)
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
[2020-07-11 00:22] LABS: ALANINE AMINOTRANSFERASE 10 U/L (0-55); ALKALINE PHOSPHATASE 82 U/L (40-136); BILIRUBIN,TOTAL 0.1 MG/DL (0.1-1.0); BUN/CREATININE RATIO 18; CALCIUM 8.7 MG/DL (8.5-10.1); CARBON DIOXIDE 22 MMOL/L (21-32); CHLORIDE 108 MMOL/L (98-107); CREATININE SERUM 0.94 MG/DL (0.60-1.30); GFR ESTIMATED > 60; GLUCOSE 111 MG/DL (70-105); LIPASE 38 U/L (8-78); POTASSIUM 4.2 MMOL/L (3.6-5.0); SODIUM 139 MMOL/L (135-145); TOTAL PROTEIN 7.4 GM/DL (6.4-8.2)
[2020-07-11 01:01] LABS: BILIRUBIN,URINE NEGATIVE (NEGATIVE); CLARITY,URINE SL CLOUDY; GLUCOSE, URINE (UA) NEGATIVE (NEGATIVE); KETONES,URINE NEGATIVE (NEGATIVE); LEUKOCYTE ESTERASE ,URINE NEGATIVE (NEGATIVE); NITRITE,URINE NEGATIVE (NEGATIVE); PROTEIN,URINE TRACE (NEGATIVE)
[2020-07-11 01:16] LABS: BACTERIA,URINE TRACE /HPF; COLOR,URINE RED; RBC,URINE >100 /HPF; WBC,URINE RARE /HPF
[2020-07-11] MEDS ORDERED: ONDA4TAB11 PO (01:32)
[2020-07-11] MEDS ORDERED: RX-ONDANSETRON 4 MG ODT (ZOFRAN) PPK #4 PO STA (01:32)
[2020-07-11 01:42] VITALS: BP 140/98
[2020-07-12] MEDS ORDERED: MEDR10TA9 PO (13:31)
[2020-07-12] MEDS ORDERED: HYDR-3870 PO (13:47)
== END 2020-07-11 01:42 | disposition home or self-care (01) ==
LOC: EDUNIT# 23:11 → ER 23:15
DX: N92.4 Excessive bleeding in the premenopausal period (principal); I10 Essential (primary) hypertension; F41.9 Anxiety disorder, unspecified; F17.210 Nicotine dependence, cigarettes, uncomplicated; Z87.820 Personal history of traumatic brain injury; Z88.6 Allergy status to analgesic agent; Z88.0 Allergy status to penicillin; Z88.1 Allergy status to other antibiotic agents; Z91.041 Radiographic dye allergy status; Z88.8 Allergy status to other drugs, medicaments and biological substances
CPT/HCPCS: 36415; 80053; 81000; 83690; 84703; 85025

== ENCOUNTER 2020-07-12 11:34 | Emergency (ER) | payer OTHER ==
[~2020-07-12] VITALS: Ht 165 cm; Wt 99.7 kg
[~2020-07-12 11:34] MED LIST changes: +ESCI10TA55; +METO50TA7
[2020-07-12 11:45] LABS: BASOPHILS % (AUTO) 0 % (0-10); EOSINOPHILS # (AUTO) 0.2 10^3/uL (0.0-0.3); EOSINOPHILS % (AUTO) 2 % (0-10); HEMATOCRIT 33 % (35-52); HEMOGLOBIN 10.7 G/DL (11.5-16.0); LYMPHOCYTES # (AUTO) 3.3 X 10^3 (1.0-4.0); LYMPHOCYTES % (AUTO) 32 % (12-44); MEAN CORPUSCULAR HEMOGLOBIN 30 PG (25-34); MEAN CORPUSCULAR HGB CONC 33 G/DL (32-36); MEAN CORPUSCULAR VOLUME 91 FL (80-99); MEAN PLATELET VOLUME 9.6 FL (7.4-10.4); MONOCYTES # (AUTO) 0.7 X 10^3 (0.0-1.0); MONOCYTES % (AUTO) 7 % (0-12); NEUTROPHILS # (AUTO) 6.2 X 10^3 (1.8-7.8); NEUTROPHILS % (AUTO) 60 % (42-75); PLATELET COUNT 316 10^3/uL (130-400); RED CELL DISTRIBUTION WIDTH 14.1 % (10.0-14.5); WHITE BLOOD COUNT 10.3 10^3/uL (4.3-11.0)
--- NOTE | 2020-07-12 11:55 | ED GU-Female ---
General Chief Complaint: 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 Stated Complaint: NEAR SYNCOPE Source: patient Exam Limitations: no limitations History of Present Illness Date Seen by Provider: Jul 12, 2020 Time Seen by Provider: 11:52 Initial Comments To ER by EMS from home with reports of a near syncopal event. She's been having some heavy vaginal bleeding since the 13th or 14th of this month. Prior to that she hadn't had a period in 3 months. Prior to that 3 months her periods have been normal. She denies fevers or chills. She reports fatigue and today she was very lightheaded. She was scheduled for an outpatient pelvic ultrasound and was showering before hand and nearly passed out in the shower. She's been using upwards of 20 tampons per day for the past few days. This will be her third ER visit for this complaint. She did see Dr. James earlier this year but was not having these troubles at the time. Timing/Duration: constant Severity/Quality: cramping Location: suprapubic Radiation: none Activities at Onset: none Prior Genitourinary Problems: none Associated Symptoms: denies symptoms Allergies and Home Medications Allergies Coded Allergies: aspirin (Verified Allergy, Severe, MAKES HER DEATHLY ILL, 10/02/12) ibuprofen (Verified Allergy, Severe, hives, 05/31/20) Penicillins (Verified Allergy, Intermediate, HIVES, 10/02/12) bupropion HCl (Verified Allergy, Intermediate, HIVES, 10/02/12) cefprozil (Verified Allergy, Intermediate, HIVES, 10/02/12) naproxen (Verified Allergy, Intermediate, HIVES, 10/02/12) Uncoded Allergies: iv dye (Allergy, Unknown, 05/31/20) Home Medications Lisinopril 10 Mg Tablet, 10 MG PO DAILY, (Reported) Lorazepam 0.5 Mg Tablet, 0.5 MG PO BID PRN for ANXIETY Prescribed by: MARIANNE OH on 03/18/19 0908 Medroxyprogesterone Acetate 10 Mg Tablet, 10 MG PO DAILY Prescribed by: ARON DOYLE on 07/12/20 1331 Metoprolol Tartrate 50 Mg Tablet, 100 MG PO DAILY, (Reported) Ondansetron 4 Mg Tab.rapdis, 4 MG PO Q6H PRN for NAUSEA/VOMITING Prescribed by: NANY RICE on 07/11/20 0132 Patient Home Medication List Home Medication List Reviewed: Yes Review of Systems Review of Systems Constitutional: see HPI EENTM: see HPI Respiratory: no symptoms reported Cardiovascular: no symptoms reported Genitourinary: no symptoms reported Musculoskeletal: no symptoms reported Skin: no symptoms reported Psychiatric/Neurological: No Symptoms Reported Endocrine: No Symptoms Reported Past Ulpztdd-Tyneuk-Rpqwvm Hx Patient Social History Alcohol Beverage of Choice: Beer Drug of Choice: Marijuana Type Used: Cigarettes 2nd Hand Smoke Exposure: Yes Recent Hopitalizations: No Immunizations Up To Date Tetanus Booster (TDap): Unknown Date of Influenza Vaccine: Aug 03, 2019 Seasonal Allergies Seasonal Allergies: No Past Medical History Surgeries: Yes (parathyroid removed/biopsy) Adenoidectomy, Gallbladder, Tonsillectomy, Tubal Ligation Respiratory: No Currently Using CPAP: No Currently Using BIPAP: No Cardiac: Yes Hypertension Neurological: Yes Headaches /Migraines, Traumatic Brain Injury Reproductive Disorders: No (Tubes are tied) 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 oz. 90.406022fv; 35.00 BMI Method:Stated General Appearance: WD/WN, no apparent distress, other (anxious) Neck: non-tender, full range of motion Cardiovascular: regular rate, rhythm, no edema Respiratory: no respiratory distress, no accessory muscle use Gastrointestinal: normal bowel sounds, non tender Pelvic: normal external exam, other (slow but persistent oozing of blood from the cervical os) Extremities: normal range of motion, non-tender Neurologic/Psychiatric: alert, normal mood/affect, oriented x 3 Skin: normal color, warm/dry Procedures/Interventions Psych Intervention: Screening/Mental Health Progress/Results/Core Measures Suspected Sepsis SIRS Temperature: Pulse: Respiratory Rate: Laboratory Tests 07/12/20 11:39: White Blood Count 10.3 Blood Pressure / Mean: Laboratory Tests 07/12/20 11:39: Creatinine 0.83, INR Comment 1.1, Platelet Count 316, Total Bilirubin 0.2 Results/Orders Lab Results Laboratory Tests Test 07/12/20 11:39 Range/Units White Blood Count 10.3 4.3-11.0 10^3/uL Red Blood Count 3.60 L 4.35-5.85 10^6/uL Hemoglobin 10.7 L 11.5-16.0 G/DL Hematocrit 33 L 35-52 % Mean Corpuscular Volume 91 80-99 FL Mean Corpuscular Hemoglobin 30 25-34 PG Mean Corpuscular Hemoglobin Concent 33 32-36 G/DL Red Cell Distribution Width 14.1 10.0-14.5 % Platelet Count 316 130-400 10^3/uL Mean Platelet Volume 9.6 7.4-10.4 FL Neutrophils (%) (Auto) 60 42-75 % Lymphocytes (%) (Auto) 32 12-44 % Monocytes (%) (Auto) 7 0-12 % Eosinophils (%) (Auto) 2 0-10 % Basophils (%) (Auto) 0 0-10 % Neutrophils # (Auto) 6.2 1.8-7.8 X 10^3 Lymphocytes # (Auto) 3.3 1.0-4.0 X 10^3 Monocytes # (Auto) 0.7 0.0-1.0 X 10^3 Eosinophils # (Auto) 0.2 0.0-0.3 10^3/uL Basophils # (Auto) 0.0 0.0-0.1 10^3/uL Prothrombin Time 14.1 12.2-14.7 SEC INR Comment 1.1 0.8-1.4 Activated Partial Thromboplast Time 35 24-35 SEC Sodium Level 136 135-145 MMOL/L Potassium Level 4.3 3.6-5.0 MMOL/L Chloride Level 106 98-107 MMOL/L Carbon Dioxide Level 21 21-32 MMOL/L Anion Gap 9 5-14 MMOL/L Blood Urea Nitrogen 14 7-18 MG/DL Creatinine 0.83 0.60-1.30 MG/DL Estimat Glomerular Filtration Rate > 60 BUN/Creatinine Ratio 17 Glucose Level 105 70-105 MG/DL Calcium Level 8.6 8.5-10.1 MG/DL Corrected Calcium 8.8 8.5-10.1 MG/DL Total Bilirubin 0.2 0.1-1.0 MG/DL Aspartate Amino Transf (AST/SGOT) 10 5-34 U/L Alanine Aminotransferase (ALT/SGPT) 10 0-55 U/L Alkaline Phosphatase 73 40-136 U/L Total Protein 6.8 6.4-8.2 GM/DL Albumin 3.7 3.2-4.5 GM/DL Serum Test, Qualitative NEGATIVE NEGATIVE My Orders Orders - ARON DOYLE APRN Cbc With Automated Diff (07/12/20 11:36) Comprehensive Metabolic Panel (07/12/20 11:36) Protime With Inr (07/12/20 11:36) Partial Thromboplastin Time (07/12/20 11:36) Ed Iv/Invasive Line Start (07/12/20 11:36) Us Non Ob Pelvis Comp/Transvag (07/12/20 11:36) Lorazepam Injection (Ativan Injection) (07/12/20 11:45) Fentanyl Injection (Sublimaze Injection (07/12/20 13:00) Hcg,Qualitative Serum (07/12/20 12:54) Medroxyprogesterone Tablet (Provera Tabl (07/12/20 13:45) Medications Given in ED Current Medications Medications Dose Ordered Sig/Juan David Route Start Time Stop Time Status Last Admin Dose Admin Fentanyl Citrate 50 mcg ONCE ONCE IVP 07/12/20 13:00 07/12/20 13:01 DC 07/12/20 12:59 50 MCG Lorazepam 0.5 mg ONCE PRN IVP 07/12/20 11:45 07/12/20 12:09 0.5 MG Vital Signs/I&O 07/12/20 11:43 Temp 37.6 Pulse 63 Resp 20 B/P (MAP) 139/93 (108) Pulse Ox 96 Capillary Refill : Progress Note : Progress Note NAME: ARBEN VICENTEMAURICIO Sales MED REC#: [id number] PT STATUS: REG ER : 1970 PHYSICIAN: ARON DOYLE APRN ADMIT DATE: 07/12/20/ER Draft Date of Exam:07/12/20 US NON OB PELVIS COMP/TRANSVAG PROCEDURE: US Non-ob pelvis comp/trans. TECHNIQUE: Multiple real-time grayscale images were obtained of the pelvis in various projections endovaginally. Transabdominal imaging was also performed. INDICATION: Menorrhagia and fatigue. FINDINGS: Uterus is anteverted measuring 8.2 x 4.5 x 6.1 cm. Endometrium is somewhat thickened measuring from 17 to 20 mm. No myometrial mass is detected. Right ovary measures 1.9 x 1.4 x 1.3 cm. Right ovary is somewhat limited in evaluation due to bowel gas. The left ovary measures 4.6 x 2.6 x 3.5 cm and contains a 3.2 x 2.6 x 2.4 cm cyst. There is blood flow to left ovary. No other adnexal mass or free fluid is seen. There are multiple cysts within the cervix, largest 11 mm in size. IMPRESSION: 1. Heterogeneous endometrial thickening measuring up to 20 mm. While this could be owing to hyperplasia, other etiologies cannot be entirely excluded. 2. 3.2 cm left ovarian cyst. 3. Multiple cervical nabothian cysts. Dictated on workstation # [id number] Dict: 07/12/20 1314 Trans: 07/12/20 1318 [id number] Interpreted by: LIYA BYRNE MD Electronically signed by: Departure Communication (Admissions) NAME: KENAN VICENTE [facility] REC#: [id number] PT STATUS: REG ER : 1970 PHYSICIAN: ARON DOYLE APRN ADMIT DATE: 07/12/20/ER Draft Date of Exam:07/12/20 US NON OB PELVIS COMP/TRANSVAG PROCEDURE: US Non-ob pelvis comp/trans. TECHNIQUE: Multiple real-time grayscale images were obtained of the pelvis in various projections endovaginally. Transabdominal imaging was also performed. INDICATION: Menorrhagia and fatigue. FINDINGS: Uterus is anteverted measuring 8.2 x 4.5 x 6.1 cm. Endometrium is somewhat thickened measuring from 17 to 20 mm. No myometrial mass is detected. Right ovary measures 1.9 x 1.4 x 1.3 cm. Right ovary is somewhat limited in evaluation due to bowel gas. The left ovary measures 4.6 x 2.6 x 3.5 cm and contains a 3.2 x 2.6 x 2.4 cm cyst. There is blood flow to left ovary. No other adnexal mass or free fluid is seen. There are multiple cysts within the cervix, largest 11 mm in size. IMPRESSION: 1. Heterogeneous endometrial thickening measuring up to 20 mm. While this could be owing to hyperplasia, other etiologies cannot be entirely excluded. 2. 3.2 cm left ovarian cyst. 3. Multiple cervical nabothian cysts. Dictated on workstation # [id number] Dict: 07/12/20 1314 Trans: 07/12/20 1318 [id number] Interpreted by: LIYA BYRNE MD Electronically signed by: Communication (PCP) [id number]-at this time Dr. James is unavailable indefinitely. Dr. Recinos is taking her call. I spoke with him, would like to do medroxyprogesterone 10 mg daily for 30 days and he'll follow up with her in the clinic. I made an appointment to see Dr. Recinos July 18 at 8:45 AM Impression Primary Impression: Episode of heavy vaginal bleeding Additional Impression: Anxiety Disposition: 01 HOME, SELF-CARE Condition: Stable Departure-Patient Inst. Decision time for Depature: 13:27 Referrals: DAVID RECINOS JOHN D MD (PCP/Family) Primary Care Physician Patient Instructions: Heavy Periods (DC) Add. Discharge Instructions: 1. Medication as directed. This is very important. Dr. James is unavailable indefinitely as of currently. Dr. RECINOS is covering for her and will see you in the clinic next July 18 at 8:45 AM. Do not miss this appointment. Scripts Medroxyprogesterone Acetate (Medroxyprogesterone Acetate) 10 Mg Tablet 10 MG PO DAILY, #30 TAB Prov: ARON DOYLE APRN 07/12/20 Work/School Note: Work Release Form Date Seen in the Emergency Department: Jul 12, 2020 Return to Work: Jul 15, 2020 Copy Copies To 1: DAVID RECINOS PETER J APRN Jul 12, 2020 11:55
[2020-07-12 11:58] LABS: ALBUMIN 3.7 GM/DL (3.2-4.5); CHLORIDE 106 MMOL/L (98-107); POTASSIUM 4.3 MMOL/L (3.6-5.0); SODIUM 136 MMOL/L (135-145)
[2020-07-12 12:00] LABS: CALCIUM 8.6 MG/DL (8.5-10.1)
[2020-07-12 12:01] LABS: GLUCOSE 105 MG/DL (70-105); TOTAL PROTEIN 6.8 GM/DL (6.4-8.2)
[2020-07-12 12:02] LABS: CARBON DIOXIDE 21 MMOL/L (21-32); INR 1.1 (0.8-1.4); PROTHROMBIN TIME PATIENT 14.1 SEC (12.2-14.7)
[2020-07-12 12:03] LABS: BILIRUBIN,TOTAL 0.2 MG/DL (0.1-1.0)
[2020-07-12 12:04] LABS: ALKALINE PHOSPHATASE 73 U/L (40-136)
[2020-07-12 12:05] LABS: CREATININE SERUM 0.83 MG/DL (0.60-1.30); GFR ESTIMATED > 60
[2020-07-12 12:06] LABS: BUN/CREATININE RATIO 17
[2020-07-12 12:07] LABS: ALANINE AMINOTRANSFERASE 10 U/L (0-55)
[2020-07-12] MEDS: LORazepam INJ 2 MG/ML (ATIVAN) VIAL IVP PRN (12:09)
[2020-07-12] MEDS: fentaNYL INJECTION 100 MCG/2 ML AMP IVP ONE (12:59)
--- NOTE | 2020-07-12 13:19 | Diagnostic Imaging Report ---
PROCEDURE: US Non-ob pelvis comp/trans. TECHNIQUE: Multiple real-time grayscale images were obtained of the pelvis in various projections endovaginally. Transabdominal imaging was also performed. INDICATION: Menorrhagia and fatigue. FINDINGS: Uterus is anteverted measuring 8.2 x 4.5 x 6.1 cm. Endometrium is somewhat thickened measuring from 17 to 20 mm. No myometrial mass is detected. Right ovary measures 1.9 x 1.4 x 1.3 cm. Right ovary is somewhat limited in evaluation due to bowel gas. The left ovary measures 4.6 x 2.6 x 3.5 cm and contains a 3.2 x 2.6 x 2.4 cm cyst. There is blood flow to left ovary. No other adnexal mass or free fluid is seen. There are multiple cysts within the cervix, largest 11 mm in size. IMPRESSION: 1. Heterogeneous endometrial thickening measuring up to 20 mm. While this could be owing to hyperplasia, other etiologies cannot be entirely excluded. 2. 3.2 cm left ovarian cyst. 3. Multiple cervical nabothian cysts. Dictated by: Dictated on workstation # [id number]
[2020-07-12] MEDS ORDERED: MEDR10TA9 PO (13:31)
[2020-07-12] MEDS ORDERED: HYDR-3870 PO (13:47)
[2020-07-12] MEDS: medroxyPROGESTERone 10 MG (PROVERA) TAB PO ONE (14:06)
[2020-07-12 14:10] VITALS: BP 142/90
== END 2020-07-12 14:09 | disposition home or self-care (01) ==
LOC: EDUNIT# 11:34 → ER 11:35
DX: N93.9 Abnormal uterine and vaginal bleeding, unspecified (principal); F41.9 Anxiety disorder, unspecified; I10 Essential (primary) hypertension; F43.10 Post-traumatic stress disorder, unspecified; Z88.6 Allergy status to analgesic agent; Z88.0 Allergy status to penicillin; Z88.1 Allergy status to other antibiotic agents; Z88.8 Allergy status to other drugs, medicaments and biological substances; Z91.041 Radiographic dye allergy status; Z77.22 Contact with and (suspected) exposure to environmental tobacco smoke (acute) (chronic); Z98.51 Tubal ligation status; Z87.820 Personal history of traumatic brain injury
CPT/HCPCS: 36415; 76830; 76856; 80053; 84703; 85025; 85610; 85730

== ENCOUNTER 2020-07-26 05:42 | Outpatient (CLI) | payer OTHER ==
[~2020-07-26] VITALS: Ht 165.1 cm; Wt 96.4 kg
[~2020-07-26 05:42] MED LIST changes: -ESCI10TA55; +ESCI10TA55 PO; +HYDR-3870 PO; +MEDR10TA9 PO; -METO50TA7; +METO50TA7 PO
[2020-07-26] MEDS ORDERED: LORA-404 PO ×2 (11:32)
[2020-07-26] MEDS ORDERED: MEDR10TA9 PO ×2 (11:33)
== END 2020-07-26 12:08 | disposition home or self-care (01) ==
LOC: PREOP 05:42
PROVIDERS: ATTEND Obstetrics & Gynecology
DX: Z01.818 Encounter for other preprocedural examination (principal)

== ENCOUNTER 2020-07-30 07:28 | Day surgery (SDC) | payer OTHER ==
[~2020-07-30] VITALS: Ht 165 cm; Wt 96.4 kg
[2020-07-30] VITALS (10 sets, daily range): BP systolic 117–150; BP diastolic 72–97
[2020-07-30] MEDS ORDERED: MIDAZOLAM 2 MG/2 ML (VERSED) VIAL ONE ×2 (08:00→08:43)
[2020-07-30] MEDS ORDERED: MIDAZOLAM 2 MG/2 ML (VERSED) VIAL IV ONE (08:00)
[2020-07-30] MEDS ORDERED: BUPIVACAINE 0.25% 30 ML (SENSORCAINE) VIAL ONE (08:03)
[2020-07-30 08:11] LABS: BASOPHILS % (AUTO) 0 % (0-10); EOSINOPHILS # (AUTO) 0.2 10^3/uL (0.0-0.3); EOSINOPHILS % (AUTO) 2 % (0-10); HEMATOCRIT 34 % (35-52); HEMOGLOBIN 10.9 G/DL (11.5-16.0); LYMPHOCYTES % (AUTO) 29 % (12-44); MEAN CORPUSCULAR HEMOGLOBIN 30 PG (25-34); MEAN CORPUSCULAR HGB CONC 32 G/DL (32-36); MEAN CORPUSCULAR VOLUME 91 FL (80-99); MEAN PLATELET VOLUME 9.9 FL (7.4-10.4); MONOCYTES # (AUTO) 0.8 X 10^3 (0.0-1.0); MONOCYTES % (AUTO) 8 % (0-12); NEUTROPHILS # (AUTO) 6.4 X 10^3 (1.8-7.8); NEUTROPHILS % (AUTO) 61 % (42-75); PLATELET COUNT 361 10^3/uL (130-400); WHITE BLOOD COUNT 10.5 10^3/uL (4.3-11.0)
[2020-07-30] MEDS: LACTATED RINGERS 1,000 ML IV PRN ×2 (08:11→09:12)
--- NOTE | 2020-07-30 08:39 | Progress Note-Pre Operative ---
Pre-Operative Progress Note H&P Reviewed The H&P was reviewed, patient examined and no changes noted. Date Seen by Provider: Jul 30, 2020 Time Seen by Provider: 08:35 Date H&P Reviewed: Jul 30, 2020 Time H&P Reviewed: 08:35 Pre-Operative Diagnosis: AUB, THickened endometrium, BMI >35 DAVID PEREZ DO Jul 30, 2020 08:39
[2020-07-30] MEDS ORDERED: fentaNYL INJECTION 100 MCG/2 ML AMP ONE (08:43)
[2020-07-30] MEDS ORDERED: D5 LR IV SOLUTION 1,000 ML IV SCH (08:46)
[2020-07-30] MEDS ORDERED: HYDR-4226 PO ×2 (08:48)
--- NOTE | 2020-07-30 08:49 | Discharge Inst-Women's Service ---
Discharge Inst-Women's Serv Depart Medication/Instructions New, Converted or Re-Newed RX: RX on Chart Problems Reviewed?: Yes Consults/Follow Up Additional Follow Up: Yes Orders/Referrals Dr. Perez 7-10 days Activity Activity: Activity as Tolerated Driving Instructions: You May Drive NO SMOKING: NO SMOKING Nothing Inside Vagina: No Douching, No Kiana, No Tampons Diet Discharge Diet: No Restrictions Symptoms to Report to : Bleeding Excessive, Pain Increased, Fever Over 101 Degrees F, Vaginal Bleeding Increase, Questions/Concerns For Any Problems or Questions: Contact Your Physician DAVID PEREZ DO Jul 30, 2020 08:49
[2020-07-30] MEDS ORDERED: SEVOFLURANE (ULTANE) 15 ML INHAL SOLN ONE (08:53)
[2020-07-30] MEDS ORDERED: proPOfol 200 MG/20 ML (DIPRIVAN) VIAL IV ONE (08:53)
[2020-07-30] MEDS ORDERED: ONDANSETRON 4 MG/2 ML (SDV) Z0FRAN ONE (08:53)
[2020-07-30] MEDS ORDERED: LIDOCAINE PF 2% 5 ML (XYLOCAINE) VIAL ONE (08:53)
[2020-07-30] MEDS ORDERED: HYDROcodone/APAP 5 MG/325 MG (LORTAB) TAB PO PRN (09:00)
[2020-07-30] MEDS ORDERED: KETOROLAC 30 MG/ML VIAL IVP ONE (09:00)
[2020-07-30] MEDS ORDERED: ONDANSETRON 4 MG/2 ML (SDV) Z0FRAN IVP PRN ×2 (09:00→09:30)
[2020-07-30] MEDS ORDERED: GLYCOPYRROLATE 0.2 MG/ML (ROBINUL) 2 ML VIAL ONE (09:07)
[2020-07-30] MEDS ORDERED: morphine INJ 10 MG/ML 1ML (SYR OR VIAL) IVP ONE (09:30)
[2020-07-30] MEDS ORDERED: PROMETHAZINE INJ 25 MG/ML (PHENERGAN) AMP ONE (09:34)
--- NOTE | 2020-07-30 14:14 | OPERATIVE REPORT ---
DATE OF SERVICE: PREOPERATIVE DIAGNOSES: 1. A 50-year-old female with abnormal uterine bleeding. 2. Thickened endometrium on ultrasound. 3. BMI of 35. POSTOPERATIVE DIAGNOSES: 1. A 50-year-old female with abnormal uterine bleeding. 2. Thickened endometrium on ultrasound. 3. BMI of 35 PROCEDURE: D and C. SURGEON: David Perez DO ANESTHESIA: LMA. ESTIMATED BLOOD LOSS: Minimal. URINE OUTPUT: A 30 mL clear at the end of the procedure. FLUIDS: 800 mL lactated Ringer's solution. FINDINGS: A grossly normal appearing external female genitalia, a uterus that bimanually palpates to approximately 12 cm in size, copious amount of endometrial tissue. SPECIMEN SENT: Endometrial curettings. INDICATIONS FOR PROCEDURE: This 50-year-old female was a patient who presented to my office with heavy uncontrolled abnormal uterine bleeding that had been occurring for quite some time. She has tried more conservative measures to control her bleeding; however, this was nonbeneficial. She had recently been started on medroxyprogesterone and was asked to continue this until we were able to perform a diagnostic procedure. I discussed with the patient proceeding with D and C versus endometrial biopsy. Risks of D and C was discussed with the patient in detail including risk of the procedure itself and risk of anesthesia. After all of her questions were answered, consent was obtained in the preoperative area and the patient was taken to the operating room. OPERATIVE REPORT IN DETAIL: Once in the operating room, anesthesia was found to be adequate. She was placed in dorsal lithotomy position, prepped and draped in normal sterile fashion. A timeout was performed. A weighted speculum inserted to the patient's vagina. Right angle retractor was used to visualize the cervix, grasped at the 12 o'clock position using a long Allis clamp. I then performed paracervical block at 3 and 9 o'clock positions on the cervix. Care was taken to aspirate for injecting. A 5 mL of 0.25% Marcaine were injected into each site after which I gently sound the uterine cavity, depth was found to be 10 cm. I then gently dilated the cervix using Hanks dilators to allow curetting. I then curetted the endometrium, clearing all of the endometrial tissue off of the endometrial wall. This was done on several different passes and a copious amount of endometrial tissue was collected. It is all sent together as endometrial curettings. I then note no active bleeding from the cervix. I removed all other instruments from the patient's vagina. The patient tolerated the procedure well and sent to recovery area in stable condition. Lap and sponge counts were correct at the end of the procedure. Instrument counts were correct as well. Job ID: [id number] DocumentID: [id number] Dictated Date: 07/30/2020 09:33:22 Floral Arranger Date: 07/30/2020 14:12:59 Dictated By: DAVID PEREZ DO
--- NOTE | 2020-07-30 14:31 | Anesthesia-General Post-Op ---
General Patient Condition Mental Status/LOC: Same as Preop Cardiovascular: Satisfactory Nausea/Vomiting: Absent Respiratory: Satisfactory Pain: Controlled Complications: Absent Post Op Complications Complications None Follow Up Care/Instructions Patient Instructions None needed. Anesthesia/Patient Condition Patient Condition Patient was seen this morning after the procedure and she was doing well, no complaints, stable vital signs, no apparent adverse anesthesia problems. SKYLER HELLER DO Jul 30, 2020 14:31
== END 2020-07-30 11:15 | disposition home or self-care (01) ==
LOC: SDC 07:28
PROVIDERS: ATTEND Obstetrics & Gynecology
DX: N93.9 Abnormal uterine and vaginal bleeding, unspecified (principal); R93.89 Abnormal findings on diagnostic imaging of other specified body structures; I10 Essential (primary) hypertension; F41.9 Anxiety disorder, unspecified; I65.23 Occlusion and stenosis of bilateral carotid arteries; F43.10 Post-traumatic stress disorder, unspecified; F17.210 Nicotine dependence, cigarettes, uncomplicated; Z79.899 Other long term (current) drug therapy; Z87.820 Personal history of traumatic brain injury; Z11.2 Encounter for screening for other bacterial diseases; Z88.0 Allergy status to penicillin; Z88.8 Allergy status to other drugs, medicaments and biological substances
CPT/HCPCS: 36415; 84703; 85025; 86850; 86900; 86901; 87081; 94664

== ENCOUNTER → 2020-12-20 | Outpatient (CLI) | payer OTHER ==
[~2020-12-20] MED LIST changes: -ESCI10TA55 PO; +ESCI10TA64 PO; +HYDR-4226 PO
--- NOTE | 2020-12-20 10:38 | Diagnostic Imaging Report ---
INDICATION: Lumbar radiculopathy. TIME OF EXAM: 10:30 AM 3 views of the lumbar spine were obtained. Curvature and alignment of the lumbar spine are normal. Vertebral body heights are well-maintained. There is minimal degenerative disc disease at L5-S1 with mild disc space narrowing and marginal osteophyte formation. Minimal retrolisthesis of L5 on S1 is also noted. No fracture is identified. There are atherosclerotic changes within the abdominal aorta. Surgical clips in the right upper quadrant noted from prior cholecystectomy. There are small calcific densities overlying the renal shadows bilaterally consistent with renal calculi. IMPRESSION: 1. Lumbar spondylosis without acute bony abnormality. 2. Bilateral nephrolithiasis. Dictated by: Dictated on workstation # [id number]
--- NOTE | 2020-12-20 13:34 | Diagnostic Imaging Report ---
Indication: Routine screening. Comparison is made prior mammogram 08/31/2019 and 12/31/2016. 2-D and 3-D bilateral screening mammography was performed with CAD. Both breasts are heterogeneously dense, limiting the sensitivity of mammography. A rounded circumscribed masses of both breasts again noted suggestive of cysts. These wax and wane in size since prior exam. No spiculated mass or malignant appearing microcalcifications are seen. Axillae are unremarkable. Impression: BI-RADS Category 2 No mammographic features suspicious for malignancy are identified. ACR BI-RADS Category 2: Benign findings. Result letter will be mailed to the patient. Note: At least 10% of breast cancer is not imaged by mammography. Dictated by: Dictated on workstation # [id number]
== END ==
LOC: RAD 10:00
PROVIDERS: ATTEND Internal Medicine
DX: Z12.31 Encounter for screening mammogram for malignant neoplasm of breast (principal); M47.26 Other spondylosis with radiculopathy, lumbar region; N20.0 Calculus of kidney
CPT/HCPCS: 72100; 77063; 77067

== ENCOUNTER → 2021-01-09 | Outpatient (CLI) | payer OTHER ==
[~2021-01-09] MED LIST changes: +ESCI-2 PO; -ESCI10TA64 PO; -LISI-552 PO; -LISI10TA2 PO; +LISI10TA25 PO; +LISI20TA26 PO
--- NOTE | 2021-01-09 19:47 | Diagnostic Imaging Report ---
PROCEDURE: MRI lumbar spine. TECHNIQUE: Multiplanar, multisequence MRI of the lumbar spine was performed without contrast. DATE: January 09, 2021. COMPARISON: Lumbar spine radiographs December 20, 2020. INDICATION: 50-year-old female, low back pain. Growth on the right lower back. FINDINGS: The alignment of the lumbar spine is unremarkable. There is no evidence of a diffuse marrow infiltrating or replacing process. There is no identified compression deformity or fracture. There is no visualized pars interarticularis defect. The visualized cord and conus medullaris is unremarkable and terminates at the L2-L3 level. There is mild to moderate disc height loss at L5-S1. L1-L2: There is no disc bulge. The facet joints and ligamentum flavum are unremarkable. There is no foraminal narrowing. There is no spinal canal stenosis. L2-L3: There is no disc bulge. The facet joints and ligamentum flavum are unremarkable. There is no foraminal narrowing. There is no spinal canal stenosis. L3-L4: There is no disc bulge. The facet joints and ligamentum flavum are unremarkable. There is no foraminal narrowing. There is no spinal canal stenosis. L4-L5: There is no disc bulge. There are moderate right and mild left facet degenerative changes without ligamentum flavum hypertrophy There is mild left foraminal narrowing. There is no spinal canal stenosis. L5-S1: There is a left paracentral disc extrusion which does near the descending left S1 nerve root and causes [id number]-[id number] narrowing of the left lateral recess. The facet joints and ligamentum flavum are unremarkable. There is mild left foraminal narrowing. There is no spinal canal stenosis. There is no visualized soft tissue mass in the included field of view on noncontrast imaging evaluation. IMPRESSION: 1. Disc and facet degenerative changes of the lumbar spine most notable at L5-S1 and L4-L5 as described in detail above. 2. No visible soft tissue mass or otherwise identified mass on noncontrast imaging evaluation. Dictated by: Dictated on workstation # [id number]
== END ==
LOC: RAD 16:15
PROVIDERS: ATTEND Physician Assistant
DX: M47.26 Other spondylosis with radiculopathy, lumbar region (principal); M48.061 Spinal stenosis, lumbar region without neurogenic claudication; M51.27 Other intervertebral disc displacement, lumbosacral region; M48.07 Spinal stenosis, lumbosacral region
CPT/HCPCS: 72148

== ENCOUNTER → 2021-02-19 | Outpatient (CLI) | payer OTHER ==
[2021-02-19 14:52] LABS: BASOPHILS # (AUTO) 0.1 10^3/uL (0.0-0.1); BASOPHILS % (AUTO) 1 % (0-10); EOSINOPHILS # (AUTO) 0.2 10^3/uL (0.0-0.3); EOSINOPHILS % (AUTO) 2 % (0-10); HEMATOCRIT 38 % (35-52); HEMOGLOBIN 12.4 g/dL (11.5-16.0); LYMPHOCYTES % (AUTO) 30 % (12-44); MEAN CORPUSCULAR HEMOGLOBIN 30 pg (25-34); MEAN CORPUSCULAR HGB CONC 33 g/dL (32-36); MEAN CORPUSCULAR VOLUME 91 fL (80-99); MEAN PLATELET VOLUME 9.8 fL (9.0-12.2); MONOCYTES # (AUTO) 0.6 X 10^3 (0.0-1.0); MONOCYTES % (AUTO) 6 % (0-12); NEUTROPHILS # (AUTO) 6.2 X 10^3 (1.8-7.8); NEUTROPHILS % (AUTO) 62 % (42-75); PLATELET COUNT 304 10^3/uL (130-400)
[2021-02-19 15:03] LABS: CHLORIDE 106 MMOL/L (98-107); POTASSIUM 4.2 MMOL/L (3.6-5.0); SODIUM 136 MMOL/L (135-145)
[2021-02-19 15:05] LABS: TRIGLYCERIDES 115 MG/DL (<150); VLDL CHOLESTEROL 23 MG/DL (5-40)
[2021-02-19 15:06] LABS: GLUCOSE 104 MG/DL (70-105); TOTAL PROTEIN 7.2 GM/DL (6.4-8.2)
[2021-02-19 15:07] LABS: CARBON DIOXIDE 21 MMOL/L (21-32)
[2021-02-19 15:08] LABS: BILIRUBIN,TOTAL 0.4 MG/DL (0.1-1.0)
[2021-02-19 15:10] LABS: ALKALINE PHOSPHATASE 78 U/L (40-136); CHOLESTEROL 186 MG/DL (< 200); CREATININE SERUM 0.88 MG/DL (0.60-1.30); GFR ESTIMATED > 60
[2021-02-19 15:11] LABS: BUN/CREATININE RATIO 14
[2021-02-19 15:12] LABS: ERYTHROCYTE SEDIMENTATION RATE 19 MM/HR (0-20); HDL CHOLESTEROL 42 MG/DL (40-60)
[2021-02-19 15:13] LABS: ALANINE AMINOTRANSFERASE 10 U/L (0-55)
--- NOTE | 2021-02-19 16:34 | Diagnostic Imaging Report ---
INDICATION: Fatigue and cough. TIME OF EXAM 2:22 PM COMPARISON is made with prior chest from 01/15/2020. FINDINGS: The heart size is normal. There is minimal patchy density in the left lung base. While this could potentially be owing to some overlying breast tissue, the possibility of an infiltrate cannot be entirely excluded. The right lung is clear. The pulmonary vascularity is normal. There is no effusion or pneumothorax identified. IMPRESSION: Questionable minimal patchy left basilar infiltrate. This study is otherwise unremarkable. Dictated by: Dictated on workstation # [id number]
== END ==
LOC: RAD 14:00
PROVIDERS: ATTEND Nurse Practitioner Family
DX: M79.10 Myalgia, unspecified site (principal); R10.31 Right lower quadrant pain; R05 Cough; R53.83 Other fatigue
CPT/HCPCS: 36415; 71046; 80053; 80061; 82306; 82728; 83540; 83550; 84443; 85025; 85652

== ENCOUNTER → 2021-05-27 | Outpatient (CLI) | payer OTHER ==
--- NOTE | 2021-05-27 12:57 | Diagnostic Imaging Report ---
PROCEDURE: Pelvic comp/transvaginal sonogram. TECHNIQUE: Complete transabdominal and transvaginal pelvic ultrasound was performed. In addition, limited pelvic Doppler was performed. INDICATION: Vaginal bleeding. Uterus is anteverted measuring 9.6 x 5.8 x 4.6 cm. Endometrium is 10 mm in thickness. There are some endometrial calcifications. No myometrial mass is identified. Right ovary measures 2.4 x 1.7 x 2.4 cm and left ovary measures 2.9 x 1.9 x 3.2 cm. Ovaries contain small follicles. There is blood flow present in the ovaries. No adnexal mass or free fluid is detected. IMPRESSION: Essentially unremarkable transabdominal and transvaginal pelvic ultrasound. Dictated by: Dictated on workstation # [id number]
== END ==
LOC: RAD 11:00
PROVIDERS: ATTEND Obstetrics & Gynecology
DX: N93.9 Abnormal uterine and vaginal bleeding, unspecified (principal)
CPT/HCPCS: 76830; 76856

== ENCOUNTER 2021-06-17 05:34 | Outpatient (CLI) | payer OTHER ==
[~2021-06-17] VITALS: Ht 165.1 cm; Wt 97.6 kg
[2021-06-17] MEDS ORDERED: LISI20TA26 PO (10:51)
[2021-06-17] MEDS ORDERED: ESCI20TA39 PO (10:51)
--- NOTE | 2021-06-21 08:59 | Anesthesia-General Post-Op ---
General Patient Condition Mental Status/LOC: Same as Preop Cardiovascular: Satisfactory Nausea/Vomiting: Absent Respiratory: Satisfactory Pain: Controlled Complications: Absent Post Op Complications Complications None Follow Up Care/Instructions Patient Instructions None needed. Anesthesia/Patient Condition Patient Condition Patient is doing well, no complaints, stable vital signs, no apparent adverse anesthesia problems. No complications reported per nursing. ALLEN SINGH CRNA Jun 21, 2021 08:59
[2021-06-24] MEDS ORDERED: IBUP-1773 PO (07:21)
[2021-06-24] MEDS ORDERED: HYDR-34 PO (07:21)
[2021-06-24] MEDS ORDERED: DCS100C PO (07:21)
[2021-06-24] MEDS ORDERED: SMT80CT PO (07:21)
== END 2021-06-17 11:16 | disposition home or self-care (01) ==
LOC: PREOP 05:34
PROVIDERS: ATTEND Obstetrics & Gynecology
DX: Z01.818 Encounter for other preprocedural examination (principal)

== ENCOUNTER 2021-06-24 06:06 | Day surgery (SDC) | payer OTHER ==
[~2021-06-24] VITALS: Ht 165.1 cm; Wt 97.6 kg
[2021-06-24] VITALS (12 sets, daily range): BP systolic 100–158; BP diastolic 57–97
[~2021-06-24 06:06] MED LIST changes: +ESCI20TA39 PO
[2021-06-24] MEDS ORDERED: metroNIDAZOLE 500MG/100ML IVPB 100 ML IV ONE (06:15)
[2021-06-24] MEDS ORDERED: VANCOMYCIN INJECTION 1,000 MG in NS (IVPB) 250 ML IV SCH (06:15)
[2021-06-24] MEDS ORDERED: MIDAZOLAM 2 MG/2 ML (VERSED) VIAL IV ONE (06:30)
[2021-06-24] MEDS: LACTATED RINGERS 1,000 ML IV PRN ×2 (06:40→08:00)
[2021-06-24] MEDS ORDERED: BUPIVACAINE 0.25% 30 ML (SENSORCAINE) VIAL ONE (06:41)
[2021-06-24 06:50] LABS: BASOPHILS % (AUTO) 0 % (0-10); EOSINOPHILS # (AUTO) 0.2 10^3/uL (0.0-0.3); EOSINOPHILS % (AUTO) 2 % (0-10); HEMATOCRIT 38 % (35-52); HEMOGLOBIN 12.4 g/dL (11.5-16.0); LYMPHOCYTES # (AUTO) 2.7 10^3/uL (1.0-4.0); LYMPHOCYTES % (AUTO) 29 % (12-44); MEAN CORPUSCULAR HEMOGLOBIN 30 pg (25-34); MEAN CORPUSCULAR HGB CONC 33 g/dL (32-36); MEAN CORPUSCULAR VOLUME 93 fL (80-99); MEAN PLATELET VOLUME 10.1 fL (9.0-12.2); MONOCYTES # (AUTO) 0.7 10^3/uL (0.0-1.0); MONOCYTES % (AUTO) 7 % (0-12); NEUTROPHILS # (AUTO) 5.7 10^3/uL (1.8-7.8); NEUTROPHILS % (AUTO) 61 % (42-75); PLATELET COUNT 311 10^3/uL (130-400); WHITE BLOOD COUNT 9.4 10^3/uL (4.3-11.0)
[2021-06-24] MEDS ORDERED: LIDOCAINE PF 2% 5 ML (XYLOCAINE) VIAL ONE (06:52)
[2021-06-24] MEDS ORDERED: ROCURONIUM 10 MG/ML 5 ML SYRINGE IV ONE (06:52)
[2021-06-24] MEDS ORDERED: ONDANSETRON 4 MG/2 ML (SDV) Z0FRAN ONE ×2 (06:52→09:06)
[2021-06-24] MEDS ORDERED: fentaNYL INJ 100 MCG/2 ML AMP ONE (06:52)
[2021-06-24] MEDS ORDERED: proPOfol 200 MG/20 ML (DIPRIVAN) VIAL IV ONE (06:52)
[2021-06-24] MEDS ORDERED: SEVOFLURANE (ULTANE) 15 ML INHAL SOLN ONE ×2 (06:52→07:20)
[2021-06-24] MEDS ORDERED: MIDAZOLAM 2 MG/2 ML (VERSED) VIAL ONE (06:53)
--- NOTE | 2021-06-24 07:17 | Progress Note-Pre Operative ---
Pre-Operative Progress Note H&P Reviewed The H&P was reviewed, patient examined and no changes noted. Date Seen by Provider: Jun 24, 2021 Time Seen by Provider: 07:09 Date H&P Reviewed: Jun 24, 2021 Time H&P Reviewed: 07:10 Pre-Operative Diagnosis: AUB, BMI 35 DAVID PEREZ DO Jun 24, 2021 07:16
--- NOTE | 2021-06-24 07:20 | Discharge Inst-Women's Service ---
Discharge Inst-Women's Serv Depart Medication/Instructions New, Converted or Re-Newed RX: Transmitted to Pharmacy Problems Reviewed?: Yes Consults/Follow Up Additional Follow Up: Yes Orders/Referrals Dr. Recinos/Fiona in 7-10 days and in 8 weeks Activity Activity: Activity as Tolerated Driving Instructions: No Driving for 1 Week NO SMOKING: NO SMOKING Nothing Inside Vagina: No Douching, No [place], No Tampons Diet Discharge Diet: No Restrictions Symptoms to Report to : Bleeding Excessive, Pain Increased, Fever Over 101 Degrees F, Vaginal Bleeding Increase, Questions/Concerns For Any Problems or Questions: Contact Your Physician Skin/Wound Care Infection Signs and Symptoms: Increased Redness, Foul Odor of Wound, Increased Drainage, Skin Itchy or Has a Rash, Increased Swelling, Temperature Above 101 F Operative Area Clean and Dry: Keep Incision Clean/Dry Stitches/Nieves/Dermabond: Dermabond, Care of Stitches Bathing Instructions: DAVID Tenorio DO Jun 24, 2021 07:20
[2021-06-24] MEDS ORDERED: DCS100C PO (07:21)
[2021-06-24] MEDS ORDERED: IBUP-1773 PO (07:21)
[2021-06-24] MEDS ORDERED: SMT80CT PO (07:21)
[2021-06-24] MEDS ORDERED: HYDR-34 PO (07:21)
[2021-06-24] MEDS ORDERED: LACTATED RINGERS 1,000 ML IV SCH (07:30)
[2021-06-24] MEDS ORDERED: ZOLPIDEM 5 MG (AMBIEN) TAB PO PRN (07:30)
[2021-06-24] MEDS ORDERED: KETOROLAC 30 MG/ML VIAL IVP PRN (07:30)
[2021-06-24] MEDS ORDERED: ANTACID SUSP 30 ML UDC (MYLANTA) PO PRN (07:30)
[2021-06-24] MEDS ORDERED: SIMETHICONE 80 MG (MYLICON) CHEW PO PRN (07:30)
[2021-06-24] MEDS ORDERED: DOCUSATE SODIUM 100 MG (COLACE) CAP PO PRN (07:30)
[2021-06-24] MEDS ORDERED: NALOXONE 0.4 MG/ML 1 ML (NARCAN) VIAL IV PRN (07:30)
[2021-06-24] MEDS ORDERED: CHLORASEPTIC LOZENGE MM PRN (07:30)
[2021-06-24] MEDS ORDERED: HYDROcodone/APAP 7.5 MG/325 MG (LORTAB, LORCET PLUS) TABLET PO PRN (07:30)
[2021-06-24] MEDS ORDERED: ONDANSETRON 4 MG/2 ML (SDV) Z0FRAN IV PRN (07:30)
[2021-06-24] MEDS ORDERED: GLYCOPYRROLATE 0.2 MG/ML (ROBINUL) 2 ML VIAL ONE ×2 (07:33→08:59)
[2021-06-24] MEDS ORDERED: HYDROmorphone 2 MG/ML VIAL (DILAUDID) ONE ×2 (07:48→09:32)
[2021-06-24] MEDS ORDERED: NEOSTIGMINE 3 MG/3 ML VIAL ONE (08:59)
[2021-06-24] MEDS ORDERED: HYDROmorphone 2 MG/ML VIAL (DILAUDID) IV ONE (09:00)
[2021-06-24] MEDS: ONDANSETRON 4 MG/2 ML (SDV) Z0FRAN IVP PRN ×2 (09:07→10:14)
[2021-06-24] MEDS ORDERED: HYDROcodone/APAP 7.5 MG/325 MG (LORTAB, LORCET PLUS) TABLET PO ONE (10:48)
--- NOTE | 2021-06-24 13:19 | OPERATIVE REPORT ---
DATE OF SERVICE: PREOPERATIVE DIAGNOSES: 1. A 50-year-old female with abnormal uterine bleeding. 2. Menorrhagia. 3. BMI of 35. POSTOPERATIVE DIAGNOSES: 1. A 50-year-old female with abnormal uterine bleeding. 2. Menorrhagia. 3. BMI of 35. PROCEDURE: Robotic-assisted total laparoscopic hysterectomy with bilateral salpingo-oophorectomy and lysis of adhesions lasting 30 minutes. SURGEON: Kory Perez DO ENERGY DIRECTOR: Fiona Samayoa DNP, was necessary for manipulation and retraction throughout the procedure. ANESTHESIA: General endotracheal. ESTIMATED BLOOD LOSS: Minimal. URINE OUTPUT: 200 mL clear at the end of the procedure. FLUIDS: 1500 mL lactated Ringer's solution. FINDINGS: Bulky and slightly hyperemic uterus with grossly normal appearing bilateral ovaries, fallopian tubes, adhesions of the omentum to the anterior abdominal wall. SPECIMEN SENT: Uterus, bilateral fallopian tubes and ovaries. INDICATIONS FOR PROCEDURE: This 50-year-old female is a patient, who returned to my office after failing more conservative measures of managing her heavy bleeding. She wished to proceed with definitive measures as this continues to be an ongoing problem for the patient. We discussed alternatives once more. She was agreeable to proceed with more definitive measures in the form of hysterectomy. Risks of the procedure were discussed with the patient in detail including risk of bleeding, infection, damage to surrounding structures including, but not limited to bowel, bladder, or kidneys, possible need for operation, postoperative complications that may occur, risk from anesthesia expectations after removal of the ovaries and side effects of this and even were discussed with the patient. After everything was discussed and all of her questions were answered, consent was obtained in the preoperative area and the patient was taken to the operating room. OPERATIVE REPORT IN DETAIL: Once in the operating room, general anesthesia was found to be adequate, placed in dorsal lithotomy position, prepped and draped in normal sterile fashion. A timeout was performed. Jacobs catheter was placed using sterile technique. A weighted speculum inserted to the patient's vagina. Right angle retractor was used to visualize the cervix, which was grasped at 12 o'clock position using a long Allis clamp. I then placed an 0 Vicryl suture through the anterior lip of the cervix and used the suture as my retraction and removed the long Allis clamp. I then gently sound the uterine cavity, depth, which was found to be 8 cm. I then placed a Ginny uterine manipulator with an 8 cm tip and a 4 cm colpotomy ring. The tip was advanced into the uterus and the balloon was deployed and the colpotomy ring was advanced around the vaginal fornix after which bimanual manipulation is appreciated on exam. I then performed a change of gloves after I removed all the other instruments from the patient's vagina and took my attention to the abdomen where subcostally at the midclavicular line, I introduced the Veress needle until intraperitoneal placement was confirmed using a saline drop test. I then proceeded with insufflation using CO2 gas. Opening pressure 2 mmHg was noted. I proceeded to max pressure of 15 mmHg, at which point I infiltrated the infraumbilical area using 0.25% Marcaine to make an 8 mm incision and directed an 8 mm da Alberto camera trocar through the incision until intraperitoneal placement was confirmed using the da Alberto laparoscope, I then briefly scanned the upper abdominal anatomy and see the entry point of the Veress needle, removed the Veress needle. Brief scan of the upper abdominal anatomy appears to be grossly normal. I then had the patient placed in steep Trendelenburg and I was able to visualize all my pelvic anatomy as defined in my findings above. I then placed two lateral trocars. These were both 10 cm lateral to my infraumbilical trocar and these were both 8 mm incisions and the trocars were placed under direct visualization and laparoscope. Once both these trocars were in place and bringing the da Alberto robot and docked in appropriate fashion, placing the SynchroSeal device in the left hand and monopolar natanael in the right hand. I started by taking down the filmy and dense adhesions of the anterior abdominal wall adhesions. These were taken down methodically and carefully as to not damage any surrounding structures or the bowel. There was no evidence of herniation. Once these were taken down, I am able to visualize the pelvic anatomy as defined in my findings above. I performed the following dissection bilaterally. Using the SynchroSeal device, I sealed and transect the infundibulopelvic ligament. I then grasped the round ligament, which I sealed and transect as well. I then grasped the entire broad ligament, which I sealed and transect down to the level of the lower uterine segment, at which point I the anterior and posterior leaflets of the broad ligament. The anterior leaflet was taken around to the anterior vaginal fornix and posterior leaflets was taken around the posterior vaginal fornix. This allows me to skeletonize the uterine vessels laterally, which I sealed and transected using the SynchroSeal device. I then created a window at the 12 o'clock position and a colpotomy using monopolar natanael and took the colpotomy circumferentially around the vaginal fornix amputating the cervix away from the vagina. The entire specimen was then removed through the vagina. I then closed the lateral vaginal apices of the vaginal cuff using 2-0 Vicryl suture in a xabobx-lz-ddemt fashion colposuspending into the uterosacral ligaments. I then closed the remainder of the vaginal cuff using 2-0 V-Loc in a running fashion, after which there was no active bleeding noted from any of my dissection planes. I then undocked the da Alberto robot and proceeded with remainder of the case laparoscopically. I copiously irrigated the pelvis using normal saline. Once again, there was no active bleeding noted from any of my dissection planes. I placed Surgiflo hemostatic agent over all my planes of dissection. I had the patient taken out of steep Trendelenburg where I removed the lateral trocars under direct visualization of laparoscope. The infraumbilical trocar was left in place to release insufflation and I introduce 10 mL of 0.25% Marcaine into the peritoneal cavity for postoperative pain management. I then removed this trocar as well. The skin reapproximated using 4-0 Monocryl in interrupted subcuticular stitches. Dermabond was applied to the incisions and Band-Aids were placed over the incisions as well. Jacobs catheter was left in place. The patient tolerated the procedure well and sent to recovery area in stable condition. Lap and sponge counts were correct at the end of the procedure. Instrument count was correct as well. Job ID: [id number] DocumentID: [id number] Dictated Date: 06/24/2021 09:36:27 Varitype Operator Date: 06/24/2021 13:18:17 Dictated By: KORY PEREZ DO
--- NOTE | 2021-06-25 09:02 | Anesthesia-General Post-Op ---
General Patient Condition Mental Status/LOC: Same as Preop Cardiovascular: Satisfactory Nausea/Vomiting: Absent Respiratory: Satisfactory Pain: Controlled Complications: Absent Post Op Complications Complications None Follow Up Care/Instructions Patient Instructions None needed. Anesthesia/Patient Condition Patient Condition Patient is doing well, no complaints, stable vital signs, no apparent adverse anesthesia problems. No complications reported per nursing. D/C [place] per [facility] [place]: Yes CARRI NICHOLS CRNA Jun 25, 2021 09:02
== END 2021-06-24 15:45 | disposition home or self-care (01) ==
LOC: SDC 06:06 → WS 10:00 → SDC 15:45
PROVIDERS: ATTEND Obstetrics & Gynecology
DX: N93.9 Abnormal uterine and vaginal bleeding, unspecified (principal); N92.0 Excessive and frequent menstruation with regular cycle; K66.0 Peritoneal adhesions (postprocedural) (postinfection); N80.0 Endometriosis of uterus; N83.292 Other ovarian cyst, left side; N72 Inflammatory disease of cervix uteri; E66.9 Obesity, unspecified; I10 Essential (primary) hypertension; F17.210 Nicotine dependence, cigarettes, uncomplicated; F43.10 Post-traumatic stress disorder, unspecified; F41.9 Anxiety disorder, unspecified; Z79.899 Other long term (current) drug therapy; Z90.49 Acquired absence of other specified parts of digestive tract; Z68.35 Body mass index [BMI] 35.0-35.9, adult; Z90.89 Acquired absence of other organs; Z68.33 Body mass index [BMI] 33.0-33.9, adult; Z80.9 Family history of malignant neoplasm, unspecified; Z83.3 Family history of diabetes mellitus
CPT/HCPCS: 36415; 84703; 85025; 86850; 86900; 86901; 87081; 88307; 94664

== ENCOUNTER 2021-09-21 12:16 | Emergency (ER) | payer OTHER ==
[~2021-09-21] VITALS: Ht 165 cm; Wt 92.5 kg
[~2021-09-21 12:16] MED LIST changes: +DOCU-239 PO; +HYDR-34 PO; +IBUP-1773 PO; +SMT80CT PO
[2021-09-21] MEDS ORDERED: ONDANSETRON 4 MG (ZOFRAN) ORAL DISSOLVE TAB SL ONE (12:45)
[2021-09-21 14:01] LABS: CALCIUM 8.7 MG/DL (8.5-10.1); CREATININE SERUM 0.87 MG/DL (0.60-1.30); POTASSIUM 4.6 MMOL/L (3.6-5.0)
--- NOTE | 2021-09-21 14:10 | ED General ---
General Chief Complaint: General Problems/Pain Stated Complaint: TOOK WRONG MEDS TOOK TWICE, FOX Nursing Triage Note: PT AMB TO RM 7 W REPORTS OF ACCIDENTALLY TAKING A DOSE OF METOPROLOL XR 50MG INSTEAD OF THE LISINOPRIL SHE WAS INTENDING TO TAKE AT APPROX 1150 THIS MORNING. PT C/O NAUSEA, FATIGUE, AND FOX AT THIS TIME. PT A&OX4. Source of Information: Patient Exam Limitations: No Limitations History of Present Illness Date Seen by Provider: Sep 21, 2021 Time Seen by Provider: 12:34 Initial Comments This 51-year-old woman presents to the emergency room after accidentally taking the Toprol-XL instead of her lisinopril. She normally takes Toprol-XL 50 mg twice daily and lisinopril 20 mg around noontime. This morning she took her usual Toprol-XL but then accidentally took Toprol-XL again instead of the lisinopril. She feels anxious about this and has some nausea. She also feels tired. She is otherwise asymptomatic. She denies any lightheadedness, dizziness, or shortness of breath. Heart rate is in the 50s and 60s on the monitor. Ingestion was about 45 minutes prior to arrival. Allergies and Home Medications Allergies Coded Allergies: ibuprofen (Verified Allergy, Severe, hives, has received Ketorolac in the past, 06/24/21) Penicillins (Verified Allergy, Intermediate, HIVES, 10/02/12) bupropion HCl (Verified Allergy, Intermediate, HIVES, 10/02/12) cefprozil (Verified Allergy, Intermediate, HIVES, 10/02/12) naproxen (Verified Allergy, Intermediate, HIVES, has received Ketorolac in the past, 06/24/21) aspirin (Verified Adverse Reaction, Severe, MAKES HER DEATHLY ILL, pt has rec Ketorolac in the past, 06/24/21) Uncoded Allergies: iv dye (Allergy, Unknown, 05/31/20) Patient Home Medication List Home Medication List Reviewed: Yes Docusate Sodium (Dok) 100 Mg Capsule, 100 MG PO BID PRN for CONSTIPATION-1ST LINE Prescribed by: DAVID PEREZ on 06/24/21 0721 Escitalopram Oxalate (Escitalopram Oxalate) 20 Mg Tablet, 20 MG PO DAILY, (Reported) Entered as Reported by: INEZ PERERA on 06/17/21 1051 Hydrocodone Bit/Acetaminophen (HYDROcodone/APAP 7.5/325 TAB) 1 Ea Tablet, 1-2 EA PO Q6HR PRN for PAIN-MODERATE (5-7) Prescribed by: DAVID PEREZ on 06/24/21 0721 Ibuprofen (Ibuprofen) 600 Mg Tablet, 600 MG PO Q6H Prescribed by: DAVID PEREZ on 06/24/21720 Lisinopril (Lisinopril) 20 Mg Tablet, 20 MG PO DAILY, (Reported) Entered as Reported by: INEZ PERERA on 06/17/21 1051 Lorazepam (Ativan) 0.5 Mg Tablet, 0.5 MG PO BID PRN for ANXIETY, (Reported) Entered as Reported by: ERIC HALL on 07/26/20 1132 Metoprolol Succinate (Metoprolol Succinate) 50 Mg Tab.er.24h, 50 MG PO BID, (Reported) Entered as Reported by: JALEN ZAMBRANO on 07/10/20 2352 Simethicone (Mi-Acid) 80 Mg Tab.chew, 40 MG PO TID PRN for INDIGESTION 2ND LINE Prescribed by: DAVID PEREZ on 06/24/21720 Review of Systems Review of Systems Constitutional: no symptoms reported EENTM: no symptoms reported Respiratory: no symptoms reported Cardiovascular: see HPI Gastrointestinal: see HPI Genitourinary: no symptoms reported : No Musculoskeletal: no symptoms reported Skin: no symptoms reported Psychiatric/Neurological: No Symptoms Reported Hematologic/Lymphatic: No Symptoms Reported Immunological/Allergic: no symptoms reported Past Sexyicw-Coygkm-Epgyij Hx Patient Social History Tobacco Use?: Yes Tobacco type used: Cigarettes Smoking Status: Current Everyday Smoker Use of E-Cig and/or Vaping dev: No Substance use?: No Alcohol Use?: No Immunizations Up To Date Tetanus Booster (TDap): Unknown Seasonal Allergies Seasonal Allergies: No Past Medical History Surgery/Hospitalization HX: SX: TOTAL HYSTERECTOMY, T&A, GALLBLADDER Surgeries: Yes (parathyroid removed/biopsy) Adenoidectomy, Gallbladder, Hysterectomy, Tonsillectomy, Tubal Ligation Respiratory: No Currently Using CPAP: No Currently Using BIPAP: No Cardiac: Yes Hypertension Neurological: Yes Headaches /Migraines Reproductive Disorders: No (Tubes are tied) 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 Disorders: Denies [employer] History: Tubal Ligation Sexually Transmitted Disease: No HIV/AIDS: No Genitourinary: Yes Kidney Stones Gastrointestinal: No Musculoskeletal: Yes Degenerate Disk Disease Endocrine: Yes Parathyroid Disease HEENT: No Cancer: No Psychosocial: Yes Eating Disorder, Anxiety, PTSD Integumentary: No Blood Disorders: No Adverse Reaction/Blood Tranf: Yes (HAS HAD WITH NO ISSUES) Family Medical History Diabetes, Hypertension, Stroke Physical Exam Vital Signs Vital Signs - First Documented 09/21/21 12:30 Temp 36.6 Pulse 58 Resp 18 B/P (MAP) 133/90 (104) Pulse Ox 100 O2 Delivery Room Air Capillary Refill : Less Than 3 Seconds Height, Weight, BMI Height: 5'5.00" Weight: 200lbs. oz. 90.307711kg; 33.00 BMI Method:Stated General Appearance: No Apparent Distress, WD/WN HEENT: Normal ENT Inspection Neck: Normal Inspection Respiratory: Lungs Clear, Normal Breath Sounds, No Accessory Muscle Use Cardiovascular: Regular Rate, Rhythm, No Edema, No Murmur Gastrointestinal: Normal Bowel Sounds, Non Tender, Soft Extremity: Normal Inspection, No Pedal Edema Neurologic/Psychiatric: Alert, Oriented x3, No Motor/Sensory Deficits, Normal Mood/Affect Skin: Normal Color, Warm/Dry Procedures/Interventions Psych Intervention: Screening/Mental Health Progress/Results/Core Measures Suspected Sepsis SIRS Temperature: Pulse: 58 Respiratory Rate: 18 Blood Pressure 133 /90 Mean: 104 Laboratory Tests 09/21/21 13:30: Creatinine 0.87 Results/Orders Lab Results Laboratory Tests Test 09/21/21 13:30 Range/Units Sodium Level 138 135-145 MMOL/L Potassium Level 4.6 3.6-5.0 MMOL/L Chloride Level 105 98-107 MMOL/L Carbon Dioxide Level 23 21-32 MMOL/L Anion Gap 10 5-14 MMOL/L Blood Urea Nitrogen 17 7-18 MG/DL Creatinine 0.87 0.60-1.30 MG/DL Estimat Glomerular Filtration Rate 69 BUN/Creatinine Ratio 20 Glucose Level 97 70-105 MG/DL Calcium Level 8.7 8.5-10.1 MG/DL My Orders Orders - MARIANNE MANJARREZ MD Ondansetron Oral Dissolve Tab (Zofran (09/21/21 12:45) Basic Metabolic Panel (09/21/21 13:22) Ed Iv/Invasive Line Start (11/6/21 13:22) Ekg Tracing (09/21/21 13:22) Monitor-Rhythm Ecg Trace Only (09/21/21 13:22) Medications Given in ED Current Medications Medications Dose Ordered Sig/Juan David Route Start Time Stop Time Status Last Admin Dose Admin Ondansetron HCl 4 mg ONCE ONCE SL 09/21/21 12:45 09/21/21 12:46 DC 09/21/21 12:59 4 MG Vital Signs/I&O 09/21/21 12:30 Temp 36.6 Pulse 58 Resp 18 B/P (MAP) 133/90 (104) Pulse Ox 100 O2 Delivery Room Air Capillary Refill : Less Than 3 Seconds Blood Pressure Mean: 104 Progress Note : Progress Note Patient was monitored closely for more than 2 hours. She was treated with Zofran which resolved her nausea. She never developed any lightheadedness, dizziness, or shortness of breath. Her resting heart rate was noted to be as low as 42 but she remained asymptomatic. She had an appropriate heart rate response with activity. She got up to the restroom multiple times and heart rate increased to the 60s. She had no symptoms with standing or ambulation. Patient was anxious to return home. Her brother can stay with her this evening and she has ability to monitor her heart rate and blood pressure at home. She also lives nearby. Since this is not a true overdose and she did not exceed therapeutic dosing, I am agreeable to discharging her home with return parameters. Patient expressed understanding and was discharged home after review of discharge instructions. Departure Impression Primary Impression: Accidental drug ingestion Qualified Codes: T50.901A - Poisoning by unspecified drugs, medicaments and biological substances, accidental (unintentional), initial encounter Additional Impressions: Bradycardia Nausea Disposition: 01 HOME, SELF-CARE Condition: Stable Departure-Patient Inst. Decision time for Depature: 14:06 Referrals: NALLELY DELEON MD (PCP) Primary Care Physician ARTIS COLON (Family) Primary Care Physician Patient Instructions: Bradycardia Add. Discharge Instructions: Drink plenty of clear liquids to stay well-hydrated. Do not take any other blood pressure medications today. If you are feeling well tomorrow, resume your usual doses of blood pressure medications including Toprol-XL and lisinopril. Monitor your heart rate and blood pressure at home. If you have any heart rates below 40 bpm or if you have any blood pressure measurements lower than 90 on the top number, please call 911 [address] you to the ER promptly. Also return to the ER if you develop symptoms of lightheadedness, dizziness, shortness of breath, severe weakness, etc. Exercise caution when standing up from a lying or sitting position as you may be lightheaded when doing so and at risk for falling. Call with questions or concerns. Return to the ER if you have any other significant concerns or urgent medical needs. All discharge instructions reviewed with patient and/or family. Voiced understanding. Copy Copies To 1: NALLELY DELEON MD Copies To 2: ARTIS COLON JOSHUA T MD Sep 21, 2021 14:10
[2021-09-21 14:27] VITALS: BP 163/87
== END 2021-09-21 14:27 | disposition home or self-care (01) ==
LOC: EDUNIT# 12:16 → ER 12:18
DX: T44.7X1A Poisoning by beta-adrenoreceptor antagonists, accidental (unintentional), initial encounter (principal); R00.1 Bradycardia, unspecified; I10 Essential (primary) hypertension; F41.9 Anxiety disorder, unspecified; F17.210 Nicotine dependence, cigarettes, uncomplicated; Z79.899 Other long term (current) drug therapy
CPT/HCPCS: 36415; 80048; 93005; 93041

== ENCOUNTER → 2021-12-06 | Outpatient (CLI) | payer SELFPAY ==
--- NOTE | 2021-12-06 11:50 | Diagnostic Imaging Report ---
INDICATION: Cough FINDINGS: Heart size and pulmonary vascularity are within normal limits, and the lungs are clear, bilaterally. IMPRESSION: Unremarkable chest. Dictated by: Dictated on workstation # [id number]
--- NOTE | 2021-12-06 12:06 | Diagnostic Imaging Report ---
INDICATION: Dysphagia. The procedure was performed in conjunction with speech pathology. Video fluoroscopy was performed during the swallowing of barium in multiple consistencies. A total of 1.0 minutes of fluoroscopic time was utilized. The patient ingested thin as well as applesauce, banana, solid meat consistencies. Oral phase was unremarkable. There was normal epiglottic tilt and laryngeal elevation. No laryngeal penetration or aspiration was observed. No residue is identified. IMPRESSION: Normal modified barium swallow. Dictated by: Dictated on workstation # [id number]
== END ==
LOC: RAD 10:00
PROVIDERS: ATTEND Physician Assistant
DX: K21.9 Gastro-esophageal reflux disease without esophagitis (principal)
CPT/HCPCS: 71046; 74230

== ENCOUNTER → 2022-03-26 | Outpatient (CLI) | payer SELFPAY ==
[~2022-03-26] MED LIST changes: +OMEP20TA56 PO; -OMEP20TA7 PO
--- NOTE | 2022-03-26 16:11 | Diagnostic Imaging Report ---
PROCEDURE: MR imaging cervical spine without contrast. TECHNIQUE: Multiplanar, multisequence MR imaging of the cervical spine was performed without contrast. DATE: March 26, 2022. COMPARISON: CT head and cervical spine November 21, 2014. INDICATION: 51-year-old female, neck pain and tingling in the right upper extremity. FINDINGS: There is normal cervical spine alignment. There is no evidence of a diffuse marrow infiltrating or replacing process. There is no identified focal concerning bone lesion. The visualized spinal cord is unremarkable. There is mild disc height loss at C5-C6 and C6-C7 with mild adjacent endplate degenerative related changes C2-C3: There is no disc bulge. The uncovertebral and facet joints are unremarkable. There is no foraminal narrowing. There is no spinal canal stenosis. C3-C4: There is no disc bulge. The uncovertebral and facet joints are unremarkable. There is no foraminal narrowing. There is no spinal canal stenosis. C4-C5: There is no disc bulge. The uncovertebral and facet joints are unremarkable. There is no foraminal narrowing. There is no spinal canal stenosis. C5-C6: There is a small posterior disc osteophyte complex. There are bilateral uncovertebral degenerative changes. There is moderate to severe left and mild right foraminal narrowing. There is no spinal canal stenosis. C6-C7: There is a posterior disc osteophyte complex. There are bilateral uncovertebral degenerative changes. There is moderate to severe bilateral foraminal narrowing. There is no spinal canal stenosis. C7-T1: There is no disc bulge. The uncovertebral and facet joints are unremarkable. There is no foraminal narrowing. There is no spinal canal stenosis. IMPRESSION: 1. Posterior disc aspect complexes and uncovertebral degenerative changes most notable at C5-C6 and C6-C7 with foraminal narrowing at both levels. 2. No high-grade spinal stenosis. 3. No focal concerning bone lesion. 4. No identified abnormal cord signal. Dictated by: Dictated on workstation # [id number]
== END ==
LOC: RAD 14:00
PROVIDERS: ATTEND Nurse Practitioner Family
DX: M50.323 Other cervical disc degeneration at C6-C7 level (principal); M48.02 Spinal stenosis, cervical region
CPT/HCPCS: 72141

== ENCOUNTER 2022-09-25 15:07 | Emergency (ER) | payer OTHER ==
[~2022-09-25] VITALS: Ht 165 cm; Wt 75.0 kg
[2022-09-25 15:22] VITALS: BP 183/116
== END 2022-09-25 15:50 | disposition left against medical advice (07) ==
LOC: EDUNIT# 15:07 → ER 15:11
DX: L50.9 Urticaria, unspecified (principal); M79.605 Pain in left leg; M79.604 Pain in right leg; Z28.310 Unvaccinated for COVID-19

== ENCOUNTER → 2022-09-26 | Outpatient (CLI) | payer OTHER ==
[2022-09-26 09:33] LABS: BASOPHILS % (AUTO) 0 % (0-10); EOSINOPHILS # (AUTO) 0.2 10^3/uL (0.0-0.3); EOSINOPHILS % (AUTO) 2 % (0-10); HEMATOCRIT 42 % (35-52); HEMOGLOBIN 13.8 g/dL (11.5-16.0); LYMPHOCYTES # (AUTO) 2.8 10^3/uL (1.0-4.0); LYMPHOCYTES % (AUTO) 23 % (12-44); MEAN CORPUSCULAR HEMOGLOBIN 30 pg (25-34); MEAN CORPUSCULAR HGB CONC 33 g/dL (32-36); MEAN CORPUSCULAR VOLUME 91 fL (80-99); MEAN PLATELET VOLUME 10.2 fL (9.0-12.2); MONOCYTES # (AUTO) 0.7 10^3/uL (0.0-1.0); MONOCYTES % (AUTO) 6 % (0-12); NEUTROPHILS # (AUTO) 8.2 10^3/uL (1.8-7.8); NEUTROPHILS % (AUTO) 69 % (42-75); PLATELET COUNT 341 10^3/uL (130-400); WHITE BLOOD COUNT 11.9 10^3/uL (4.3-11.0)
[2022-09-26 09:45] LABS: ALBUMIN 4.2 GM/DL (3.2-4.5); POTASSIUM 4.1 MMOL/L (3.6-5.0)
[2022-09-26 09:46] LABS: CALCIUM 9.8 MG/DL (8.5-10.1)
[2022-09-26 09:47] LABS: TOTAL PROTEIN 7.7 GM/DL (6.4-8.2)
[2022-09-26 09:49] LABS: BILIRUBIN,TOTAL 0.4 MG/DL (0.1-1.0)
[2022-09-26 09:51] LABS: CREATININE SERUM 0.99 MG/DL (0.60-1.30)
== END ==
LOC: LAB 09:15
PROVIDERS: ATTEND Nurse Practitioner Family
DX: I10 Essential (primary) hypertension (principal); L50.9 Urticaria, unspecified
CPT/HCPCS: 36415; 80053; 80061; 84443; 85025

== ENCOUNTER → 2023-10-14 | Outpatient (CLI) | payer SELFPAY ==
[~2023-10-14] MED LIST changes: +L. A1CAP11 PO; +PANT40TA2 PO
[2023-10-14 15:09] LABS: BASOPHILS # (AUTO) 0.1 10^3/uL (0.0-0.1); BASOPHILS % (AUTO) 1 % (0-10); EOSINOPHILS # (AUTO) 0.2 10^3/uL (0.0-0.3); EOSINOPHILS % (AUTO) 1 % (0-10); HEMATOCRIT 40 % (35-52); LYMPHOCYTES % (AUTO) 27 % (12-44); MEAN CORPUSCULAR HEMOGLOBIN 30 pg (25-34); MEAN CORPUSCULAR HGB CONC 32 g/dL (32-36); MEAN CORPUSCULAR VOLUME 91 fL (80-99); MEAN PLATELET VOLUME 9.5 fL (9.0-12.2); MONOCYTES # (AUTO) 0.6 10^3/uL (0.0-1.0); MONOCYTES % (AUTO) 6 % (0-12); NEUTROPHILS # (AUTO) 7.3 10^3/uL (1.8-7.8); NEUTROPHILS % (AUTO) 65 % (42-75); PLATELET COUNT 360 10^3/uL (130-400); WHITE BLOOD COUNT 11.1 10^3/uL (4.3-11.0)
[2023-10-14 15:30] LABS: ALBUMIN 4.1 GM/DL (3.2-4.5); BILIRUBIN,TOTAL 0.4 MG/DL (0.1-1.0); CALCIUM 9.2 MG/DL (8.5-10.1); CREATININE SERUM 1.1 MG/DL (0.60-1.30); TOTAL PROTEIN 7.6 GM/DL (6.4-8.2)
--- NOTE | 2023-10-14 15:48 | Diagnostic Imaging Report ---
INDICATION: Subacute cough, nausea, vomiting and constipation. COMPARISON: 08/13/2023. FINDINGS: Supine and upright views of the abdomen show a nondistended bowel gas pattern. No abnormal air fluid levels or free intraperitoneal air is seen. Small extraosseous calcifications are noted projecting over the superior pole of the right kidney and inferior pole of the left kidney. Moderate colonic air and stool is also noted. Bony and soft tissue structures are within normal limits. No organomegaly is identified. Accompanying upright chest shows normal heart size and pulmonary vascularity. The lungs are well aerated and clear. The mediastinum is normal in appearance. IMPRESSION: 1. Nonobstructed small bowel gas pattern. 2. No acute cardiopulmonary process. 3. Probable nonobstructive renal calculi. 4. Moderate colonic air and stool. Please correlate for constipation. Dictated by: Dictated on workstation # [id number]
== END ==
LOC: RAD 14:46
PROVIDERS: ATTEND Physician Assistant
DX: K59.00 Constipation, unspecified (principal); R05.2 Subacute cough; R11.2 Nausea with vomiting, unspecified
CPT/HCPCS: 36415; 74022; 80053; 82150; 83690; 85025; 86141